=== PATIENT | male | born 1935 | race Caucasian/White ===

== ENCOUNTER → 2017-11-21 | Outpatient (CLI) | payer MEDICARE, BC, OTHER | LOC: M LRY 14:40 | DX: M50.322 Other cervical disc degeneration at C5-C6 level (principal); M85.88 Other specified disorders of bone density and structure, other site; M25.712 Osteophyte, left shoulder; M25.512 Pain in left shoulder | CPT/HCPCS: 72052; G0463 ==

== ENCOUNTER 2018-01-17 09:43 | Emergency (ER) | payer MEDICARE, BC, OTHER ==
[2018-01-17 10:49] LABS: BASO % 0.2 % (0.0-1.0); EOS % 0.1 % (0.0-3.0); HEMATOCRIT 47.2 % (42.0-52.0); HEMOGLOBIN 14.3 g/dl (13.5-17.5); IMMATURE GRANULOCYTE % 0.4 % (0-3.0); LYMPH # 0.8 10^3/uL (1.5-4.5); LYMPH % 9.3 % (24.0-44.0); MEAN CORPUSCULAR HEMOGLOBIN 30.5 pg (27.0-33.0); MEAN CORPUSCULAR HGB CONC 30.3 g/dl (32.0-36.5); MEAN CORPUSCULAR VOLUME 100.6 fl (80.0-96.0); MONO # 0.6 10^3/uL (0.0-0.8); MONO % 7.7 % (0.0-5.0); NEUTROPHILS # 6.8 10^3/uL (1.8-7.7); NEUTROPHILS % 82.3 % (36.0-66.0); PLATELET COUNT, AUTOMATED 128 10^3/uL (150-450); RED BLOOD COUNT 4.69 10^6/uL (4.30-6.10); RED CELL DISTRIBUTION WIDTH 17.1 % (11.5-14.5); WHITE BLOOD COUNT 8.3 10^3/uL (4.0-10.0)
[2018-01-17 11:04] LABS: AMMONIA 32 uMOL/L (<32)
[2018-01-17 11:09] LABS: LACTIC ACID SEPSIS PROTOCOL 1.5 MMOL/L (0.4-2.0)
[2018-01-17 11:09] LABS: ANION GAP 4 MEQ/L (8-16); BLOOD UREA NITROGEN 26 MG/DL (7-18); CALCIUM LEVEL 8.8 MG/DL (8.8-10.2); CARBON DIOXIDE LEVEL 42 MEQ/L (21-32); CHLORIDE LEVEL 99 MEQ/L (98-107); CK-MB VALUE MASS 1.8 NG/ML (<3.6); CPK CREATINE PHOSPHOKINASE 59 U/L (39-308); CREATININE FOR GFR 0.96 MG/DL (0.70-1.30); GLOMERULAR FILTRATION RATE > 60.0 (>35); GLUCOSE, FASTING 99 MG/DL (70-100); MB/CK RELATIVE INDEX 3.05 (< OR =4); POTASSIUM SERUM 4.6 MEQ/L (3.5-5.1); SODIUM LEVEL 145 MEQ/L (136-145); TROPONIN I < 0.02 NG/ML (< 0.10)
[2018-01-17 11:15] LABS: ABG BASE EXCESS 13.1 (-2.0-2.0); ABG HCO3 43.3 MEQ/L (22.0-26.0); ABG O2 SATURATION 88.9 % (95.0-99.0); ABG PARTIAL PRESSURE O2 61.6 mmHg (75.0-100.0); ABG STANDARD HCO3 36.6 MEQ/L (22.0-26.0); ABG TOTAL CO2 45.9 MEQ/L (23.0-31.0); ABG pH (ARTERIAL) 7.322 UNITS (7.350-7.450)
[2018-01-17 11:18] LABS: ABG PARTIAL PRESSURE CO2 85.6 mmHg (35.0-45.0)
[2018-01-17 11:23] LABS: BEDSIDE GLUCOSE 109 MG/DL (83-110)
[2018-01-17] MEDS: NS 500 ML IV (11:23)
[2018-01-17] MEDS ORDERED: FUROSEMIDE 40 MG/4 ML VIAL (J1940) IV (12:00)
[2018-01-17] MEDS ORDERED: LevoFLOXacin IV 500 MG in APPROPRIATE DILUENT 1 EA IV (12:00)
[2018-01-17] MEDS: IPRATROPIUM 0.5MG/ALBUTEROL 2.5MG INH SOL UD 3ML (DUONEB)(J7620) NEB (13:05)
[2018-01-17] MEDS: methylPREDNISolone INJ 125 MG/2 ML VIAL (J2930) IV (13:19)
== END 2018-01-17 14:56 | disposition home or self-care (01) ==
LOC: M ED 09:43
DX: R06.02 Shortness of breath (principal); I44.4 Left anterior fascicular block; J44.9 Chronic obstructive pulmonary disease, unspecified; E78.5 Hyperlipidemia, unspecified; E07.9 Disorder of thyroid, unspecified; R97.20 Elevated prostate specific antigen [PSA]; Z72.0 Tobacco use; Z79.82 Long term (current) use of aspirin; Z79.899 Other long term (current) drug therapy
CPT/HCPCS: J2930

== ENCOUNTER 2018-10-26 16:35 | Inpatient (IN) | payer MEDICARE, BC, OTHER ==
[~2018-10-26] VITALS: Ht 175.3 cm; Wt 75.3 kg
[~2018-10-26 16:35] MED LIST: ACET500T15 PO; ASPI1TAB15 PO; AZIT-12 PO; BENE6POW PO; BUDE0.5S6 INH; BUFF325T PO; IPRA0.00 INH; NICO21PAT TD; OMEP20CA3 PO; PERF20NE2 INH; PRED10TA2 PO; PROAAER10 INH; SPIR1CAP INH; SYMB16INH INH; VITA100066 PO; [UNRECOGNIZED DRUG - CODE] PO
[2018-10-26 17:44] LABS: BASO % 0.1 % (0.0-1.0); HEMATOCRIT 44.8 % (42.0-52.0); HEMOGLOBIN 14.2 g/dl (13.5-17.5); LYMPH # 0.4 10^3/uL (1.5-4.5); LYMPH % 2.2 % (24.0-44.0); MEAN CORPUSCULAR HEMOGLOBIN 29.3 pg (27.0-33.0); MEAN CORPUSCULAR HGB CONC 31.7 g/dl (32.0-36.5); MEAN CORPUSCULAR VOLUME 92.4 fl (80.0-96.0); MONO # 1.9 10^3/uL (0.0-0.8); MONO % 11.4 % (0.0-5.0); NEUTROPHILS # 14.2 10^3/uL (1.8-7.7); NEUTROPHILS % 85.5 % (36.0-66.0); PLATELET COUNT, AUTOMATED 251 10^3/uL (150-450); RED BLOOD COUNT 4.85 10^6/uL (4.30-6.10); WHITE BLOOD COUNT 16.6 10^3/uL (4.0-10.0)
[2018-10-26] MEDS ORDERED: IPRATROPIUM 0.5MG/ALBUTEROL 2.5MG INH SOL UD 3ML (DUONEB)(J7620) NEB ONE (17:45)
[2018-10-26 18:06] LABS: BLOOD UREA NITROGEN 36 MG/DL (7-18); CALCIUM LEVEL 8.9 MG/DL (8.8-10.2); CARBON DIOXIDE LEVEL 33 MEQ/L (21-32); CHLORIDE LEVEL 103 MEQ/L (98-107); CREATININE FOR GFR 1.14 MG/DL (0.70-1.30); GLOMERULAR FILTRATION RATE > 60.0 (>35); GLUCOSE, FASTING 99 MG/DL (70-100); POTASSIUM SERUM 5.5 MEQ/L (3.5-5.1); SODIUM LEVEL 142 MEQ/L (136-145)
--- NOTE | 2018-10-26 18:19 | REP ---
Chest one-view HISTORY: Cough Comparison: 01/23/2018 An increase in interstitial markings is present in the lungs consistent with chronic interstitial change. Patchy density is present in the left lower lobe consistent with an infiltrate. The heart is normal in size. The pulmonary vasculature is normal in appearance. Impression: 1. Chronic interstitial change. 2. Left lower lobe infiltrate. Electronically Signed by Lee Mccord MD 10/26/2018 06:11 P
[2018-10-26] MEDS ORDERED: LevoFLOXacin IV 750 MG in APPROPRIATE DILUENT 1 EA IV ONE (18:30)
[2018-10-26] MEDS ORDERED: ACETAMINOPHEN 500 MG TAB PO ONE (18:30)
[2018-10-26] MEDS ORDERED: NS 2,180 ML in APPROPRIATE DILUENT 1 EA IV ONE (18:30)
[2018-10-26] MEDS ORDERED: methylPREDNISolone INJ 125 MG/2 ML VIAL (J2930) IV ONE (18:45)
[2018-10-26] MEDS: IPRATROPIUM 0.5MG/ALBUTEROL 2.5MG INH SOL UD 3ML (DUONEB)(J7620) NEB SCH ×5 (18:50→22:42)
[2018-10-26 18:53] LABS: VENOUS BASE EXCESS 7.1 (-2.0-2.0); VENOUS HCO3 34.2 MEQ/L (23.0-27.0); VENOUS O2 SATURATION 90.7 % (60.0-80.0); VENOUS PARTIAL PRESSURE CO2 58.2 mmHg (38.0-50.0); VENOUS PARTIAL PRESSURE O2 60.7 mmHg (30.0-50.0); VENOUS PH 7.387 UNITS (7.330-7.430); VENOUS STANDARD HCO3 30.7 MEQ/L
[2018-10-26] MEDS ORDERED: GUAI1200 PO (19:03)
[2018-10-26] MEDS ORDERED: METH125VL IM (19:03)
[2018-10-26] MEDS ORDERED: IPRA2IN INH (19:03)
[2018-10-26] MEDS ORDERED: CEFT1INJ3 IM (19:03)
[2018-10-26 19:12] LABS: INFLUENZA A AMPLIFICATION NEGATIVE (NEGATIVE); INFLUENZA B AMPLIFICATION NEGATIVE (NEGATIVE)
[2018-10-26 19:28] LABS: ALBUMIN 3.1 GM/DL (3.2-5.2); ALT/SGPT 17 U/L (12-78); BILIRUBIN,DIRECT < 0.1 MG/DL (0.0-0.2); BILIRUBIN,TOTAL 0.6 MG/DL (0.2-1.0); CPK CREATINE PHOSPHOKINASE 120 U/L (39-308); NT-PRO BNP 420 PG/ML (<450); THYROID STIMULATING HORMONE 0.187 uIU/ML (0.358-3.740); TOTAL PROTEIN 7.4 GM/DL (6.4-8.2)
[2018-10-26 20:01] LABS: INR 1.15; PROTHROMBIN TIME 14.9 SECONDS (12.1-14.4)
[2018-10-26 20:19] LABS: ABG BASE EXCESS 4.6 (-2.0-2.0); ABG HCO3 29.6 MEQ/L (22.0-26.0); ABG O2 SATURATION 97.9 % (95.0-99.0); ABG PARTIAL PRESSURE CO2 45.6 mmHg (35.0-45.0); ABG PARTIAL PRESSURE O2 100.6 mmHg (75.0-100.0); ABG STANDARD HCO3 28.6 MEQ/L (22.0-26.0)
[2018-10-26] MEDS ORDERED: BISACODYL 5 MG TAB PO PRN (20:45)
[2018-10-26] MEDS ORDERED: ACETAMINOPHEN TAB 650MG DOSE (2X325MG) PO PRN (20:45)
[2018-10-26] MEDS ORDERED: ALBUTEROL SULFATE 2.5 MG/0.5 ML INH NEB SOLN NEB PRN (20:45)
[2018-10-26] MEDS: NS 1,000 ML IV SCH (21:00)
[2018-10-26] MEDS: guaiFENesin ER 600 MG TAB PO SCH (21:52)
[2018-10-26] MEDS: HEPARIN SOD (PORCINE) 5000 UNITS/ML VIAL SC SCH (21:56)
--- NOTE | 2018-10-26 22:05 | HPE ---
DATE OF ADMISSION: 10/26/2018 My attending physician for this patient encounter is Dr. Orlando. HISTORY OF THE PRESENT ILLNESS: The patient is an 83-year-old male with a past medical history of chronic obstructive pulmonary disease, who presents to the hospital today after seeing his primary care physician. The patient has had about a 6-8 week history of increased shortness of breath with cough. The patient has been going back about every 3-4 weeks to primary care physician who had been giving him a one-time dose of intramuscular (IM) methylprednisolone as well as oral prednisone for chronic obstructive pulmonary disease (COPD) exacerbations. The family says this has been going on for some time. Yesterday, he went to his primary care physician, and they were concerned because he was having a fever and was having increased shortness of breath. They gave him a one-time dose of IM methylprednisolone, as well as IM Rocephin. The patient was seen again today and was continuing to have fevers and was not feeling well, so he presented to the emergency room. In the emergency room, the patient received another additional dose of methylprednisolone IV 125 mg. The patient also had a chest x-ray, which showed a left lower lobe infiltrate. The patient did have a fever upon arrival to the emergency room of 100.5 degrees Fahrenheit. The patient continued not to feel well in the emergency room. The patient says that he has been coughing; however, he has not been getting much up. He denies having any chills. He denies any nausea or vomiting. Patient said he has not been eating as much. Patient has only been drinking small amounts of apple juice, which has caused him not to be urinating as much as he had been in the past. The decision was made to admit the patient for treatment of his community-acquired pneumonia. The patient had a previous COPD exacerbation that required hospitalization in February of 2018. PAST MEDICAL HISTORY: COPD. Gastroesophageal reflux disease (GERD). PAST SURGICAL HISTORY: Cataract surgery. Colonoscopy with polypectomy. ALLERGIES: No known drug allergies. HOME MEDICATIONS: - aspirin 81 mg daily - vitamin D 1000 units daily - Mucinex ER 1200 mg twice a day - omeprazole 20 mg daily - Tylenol 500 mg as needed for pain - albuterol inhaler - Atrovent inhaler - Spiriva inhaler - Beneprotein - [facility] FAMILY HISTORY: Father of viral encephalitis at 39, also a history of hypertension on the patient's mom's side. SOCIAL HISTORY: The patient is a former smoker, quit in February of 2018 after a COPD exacerbation hospitalization. Patient denies drinking or drug use. Patient lives with spouse with their [place]. REVIEW OF SYSTEMS: General: Patient denies fevers or chills. HEENT: Patient denies headaches, blurry vision, runny nose, sore throat or earache. Cardiovascular: Patient denies chest pain. Respiratory: Patient endorses shortness of breath and cough as described in history of the present illness. Gastrointestinal (GI): Patient denies abdominal pain, nausea, vomiting, or diarrhea. Genitourinary (): Patient reports decreased urine output over the last day, but denies any pain or difficulty with urination. Neurological: Patient denies any numbness or tingling in his extremities. Extremities: Patient denies swelling in his extremities. Skin: Patient denies any rashes. Lymphatics: Patient denies any lumps or bumps in his neck, axilla or groin. PHYSICAL EXAMINATION: Vital Signs: Temperature 100.5 degrees Fahrenheit, pulse 97, respirations 21, blood pressure 102/58, pulse oximetry 98% on 4 liters via nasal cannula. General: The patient is an alert and oriented male patient who is laying in bed with nasal cannula in the correct position in the patient's nose. The patient was able to carry on a conversation with me and was able to follow commands. Patient appeared to be pursed-lip breathing but did not appear to be in any acute distress at this time. HEENT: Normocephalic, atraumatic with anicteric sclerae. Pupils were round, equal, and reactive to light. Neck: Neck was supple with no lymphadenopathy and no stridor present. Cardiovascular: Regular rate and rhythm with no murmurs auscultated. Respiratory: Poor air movement heard throughout. There was some inspiratory rhonchorous breath sounds in the left lower lung field in the back. The lungs were tympanic to percussion in all lung dupree. Abdomen: Soft, nontender, nondistended with normoactive bowel sounds times four quadrants. Extremities: Radial, posterior tibial and dorsalis pedis pulses were 2/4 bilaterally. There was no pretibial edema present. Neurological: Cranial nerves II-XII grossly intact bilaterally. Upper and lower extremity strength intact bilaterally. Patient reports good sensation of the upper and lower extremities bilaterally. Skin: The skin of the head and neck, back, arms, and lower extremities was examined and did not show any rashes or lesions. LABORATORY: CBC - white blood cells 16.6, hemoglobin 14.2, hematocrit 44.8, platelet count 251. A CMP shows sodium 142, potassium 5.5, chloride 103, bicarbonate 33, BUN 36, creatinine 1.14, glucose 99, calcium 8.9, total bilirubin 0.6, direct bilirubin less than 0.1, AST 29, ALT 17, alkaline phosphatase 87, total protein 7.4, albumin 3.1, lactic acid was 4.8, creatine kinase 120, CK-MB 1.0, troponin 0.10, NT-Pro-B natriuretic peptide 420. PT 14.9, INR 1.15. An arterial blood gas was performed and showed a pH of 7.43, pCO2 45.6, pO2 100.6, bicarbonate 29.6. The patient was tested for influenza A and B, which were both negative. IMAGING: A chest x-ray performed on 10/26/2018 showed chronic interstitial change and a left lower lobe infiltrate. ASSESSMENT AND PLAN: The patient is an 83-year-old male patient who presents to the hospital with increased shortness of breath and coughing, most likely secondary to community-acquired pneumonia, as well as an acute exacerbation of chronic obstructive pulmonary disease. 1. Increased shortness of breath and cough. This is most likely due to community-acquired pneumonia on top of chronic obstructive pulmonary disease. Patient had been receiving doses of steroids off and on over the last few months, prescribed by primary care provider. At this time, the patient was not wheezing; however, he did have decreased air movement throughout his lung dupree. There was rhonchi present in the left lower lung field, which is consistent with pneumonia. Patient will be receiving levofloxacin IV 750 mg daily for his pneumonia. Patient will also receive methylprednisolone IV 40 mg twice a day for COPD exacerbation. Patient will receive DuoNebs every 4 hours with albuterol nebulizers every 2 hours as needed for shortness of breath. Patient will be admitted to the progressive care unit with obstructive sleep apnea (KATHY) protocol for continued pulse oximetry monitoring. The patient is on 3 liters of oxygen at home. We will titrate the patient's oxygen therapy for a pulse oximetry of 88-92%. 2. Community-acquired pneumonia. Patient did have a fever of 100.5 in the emergency department. The patient also has leukocytosis and an infiltrate that is seen on chest x-ray. The patient will be treated with Levaquin as described above. 3. Acute exacerbation of chronic obstructive pulmonary disease. This is most likely secondary to the patient's community-acquired pneumonia. We will continue the treatment as outlined above with nebulizer treatment and IV methylprednisolone. 4. Lactic acidosis. This is most likely secondary to the patient's difficulty breathing. However, due to the patient's pneumonia, it could also be secondary to the patient's pneumonia. We will repeat in 4 hours. The patient is receiving a bolus of IV normal saline of 2.3 liters. 5. Leukocytosis. Leukocytosis may be secondary to the patient's pneumonia as well as the patient's doses of steroids that he has been receiving from his primary care provider. We will continue to monitor this. 6. Gastroesophageal reflux disease. We will continue the patient's omeprazole from home. 7. Deep vein thrombosis (DVT) prophylaxis. The patient will be on heparin 5000 units subcutaneous injection every 8 hours. 8. CODE STATUS: The patient does have a Medical Orders for Life-Sustaining Treatment (MOLST) form, which is signed. However, they do not remember exactly what they put on. In discussion with the patient today, I asked him whether or not he would want us to do cardiopulmonary resuscitation and/or intubation for his breathing if he worsened, patient said he would like us to do whatever we can now and then when family members bring in MOLST form tomorrow morning to go off of what the MOLST form says. I did discuss what noninvasive positive pressure ventilation is versus mechanical ventilation with an endotracheal tube. I described both of those in depth. The patient and family members had understanding. They would like us to do whatever we can tonight if the patient's respiratory status declines. My faculty preceptor for this patient encounter was physically present during the encounter and was fully available. All aspects of the patient interview, examination, medical decision making process, and medical care plan development were reviewed and approved by the faculty preceptor. The faculty preceptor is aware and concurs with the plan as stated in the body of this note and will attest to such by his/her cosignature. I have both independently examined this patient as well as reviewed H and P. I have discussed in detail with the resident the findings and plan of treatment as documented in the residents note. DEEJAY
[2018-10-26 23:20] VITALS: BP 118/73
[2018-10-26 23:30] VITALS: O2SAT 97
[2018-10-27] VITALS (17 sets, daily range): BP systolic 103–128; BP diastolic 65–78; O2SAT 87–97
[2018-10-27] MEDS: IPRATROPIUM 0.5MG/ALBUTEROL 2.5MG INH SOL UD 3ML (DUONEB)(J7620) NEB SCH ×5 (03:15→20:12)
[2018-10-27 05:35] LABS: BASO % 0.1 % (0.0-1.0); LYMPH # 0.4 10^3/uL (1.5-4.5); LYMPH % 2.7 % (24.0-44.0); MEAN CORPUSCULAR HEMOGLOBIN 29.9 pg (27.0-33.0); MEAN CORPUSCULAR HGB CONC 31.9 g/dl (32.0-36.5); MEAN CORPUSCULAR VOLUME 93.5 fl (80.0-96.0); MONO # 0.3 10^3/uL (0.0-0.8); MONO % 2.6 % (0.0-5.0); NEUTROPHILS # 12.2 10^3/uL (1.8-7.7); NEUTROPHILS % 94.1 % (36.0-66.0); PLATELET COUNT, AUTOMATED 205 10^3/uL (150-450); RED BLOOD COUNT 3.85 10^6/uL (4.30-6.10); WHITE BLOOD COUNT 12.9 10^3/uL (4.0-10.0)
[2018-10-27 05:41] LABS: HEMOGLOBIN 11.5 g/dl (13.5-17.5)
[2018-10-27 05:55] LABS: BLOOD UREA NITROGEN 27 MG/DL (7-18); CALCIUM LEVEL 7.8 MG/DL (8.8-10.2); CARBON DIOXIDE LEVEL 30 MEQ/L (21-32); CHLORIDE LEVEL 107 MEQ/L (98-107); CREATININE FOR GFR 1.04 MG/DL (0.70-1.30); GLOMERULAR FILTRATION RATE > 60.0 (>35); GLUCOSE, FASTING 146 MG/DL (70-100); MAGNESIUM LEVEL 2.1 MG/DL (1.8-2.4); POTASSIUM SERUM 4.2 MEQ/L (3.5-5.1); SODIUM LEVEL 144 MEQ/L (136-145)
[2018-10-27] MEDS: methylPREDNISolone INJ 40 MG/1 ML VIAL (J2920) IV SCH ×2 (06:25→19:53)
[2018-10-27] MEDS: HEPARIN SOD (PORCINE) 5000 UNITS/ML VIAL SC SCH ×3 (06:25→21:21)
--- NOTE | 2018-10-27 06:32 | ECGEPIP ---
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
[2018-10-27] MEDS ORDERED: PREVNAR 13 VACCINE SYRINGE (CPT CODE:90670) IM ONE (09:00)
[2018-10-27] MEDS: VITAMIN D 1,000 INTERNATIONAL UNITS TABLET PO SCH (09:59)
[2018-10-27] MEDS: guaiFENesin ER 600 MG TAB PO SCH ×2 (09:59→21:20)
[2018-10-27] MEDS: ASPIRIN 81 MG ENTERIC TAB PO SCH (09:59)
[2018-10-27] MEDS: OMEPRAZOLE 20 MG CAP PO SCH (09:59)
[2018-10-27] MEDS: NS 1,000 ML IV SCH (10:17)
--- NOTE | 2018-10-27 13:15 | IPNPDOC ---
Subjective Date Seen The patient was seen on 10/27/18. Subjective Chief Complaint/HPI Patient seen and examined at the bedside. Reports that his respiratory status is improved compared to when he first came to the ER. Objective Physical Examination General Exam: Positive: Alert, Cooperative, No Acute Distress ENT Exam: Positive: Atraumatic, Mucous membr. moist/pink Neck Exam: Negative: JVD Chest Exam: Positive: Diminished Heart Exam: Positive: Rate Normal, Normal S1, Normal S2 Abdomen Exam: Positive: Soft; Negative: Tenderness Extremity Exam: Negative: Tenderness, Swelling Psych Exam: Positive: Oriented x 3 Assessment /Plan Plan/VTE VTE Prophylaxis Ordered?: Yes Plan COPD Exacerbation 2/2 Community Acquired Pneumonia Chest x-ray notable for left lower lobe infiltrate Respiratory panel negative IV steroids, Levaquin, inhaled therapy, and serial nebulizer therapy ordered Physical therapy ordered for functional optimization We will continue to monitor the patient's respiratory status Lactic Acidosis 2/2 Above GERD Cont PPI DVT Prophylaxis Heparin SC Disposition-pending clinical improvement, PT clearance. VS, I&O, [facility] Vital Signs/I&O Vital Signs Date Time Temp Pulse Resp B/P (MAP) Pulse Ox O2 Delivery O2 Flow Rate FiO2 10/27/18 11:45 97.0 82 20 103/65 (78) 95 3.0 10/27/18 08:19 Nasal Cannula I&O- Last 24 Hours up to 6 AM 10/27/18 06:00 Intake Total 2970 ml Balance 2970 ml Laboratory Data 24H LABS Laboratory Tests 2 10/26/18 17:20: Immature Granulocyte % (Auto) 0.8, White Blood Count 16.6H, Red Blood Count 4.85, Hemoglobin 14.2, Hematocrit 44.8, Mean Corpuscular Volume 92.4, Mean Corpuscular Hemoglobin 29.3, Mean Corpuscular Hemoglobin Concent 31.7L, Red Cell Distribution Width 15.2H, Platelet Count 251, Neutrophils (%) (Auto) 85.5H, Lymphocytes (%) (Auto) 2.2L, Monocytes (%) (Auto) 11.4H, Eosinophils (%) (Auto) 0.0, Basophils (%) (Auto) 0.1, Neutrophils # (Auto) 14.2H, Lymphocytes # (Auto) 0.4L, Monocytes # (Auto) 1.9H, Eosinophils # (Auto) 0.0, Basophils # (Auto) 0.0, Nucleated Red Blood Cells % (auto) 0.0, Blood Gas Bicarbonate Standard 30.7, Ve nous Blood pH 7.387, Venous Blood Partial Pressure CO2 58.2H, Venous Blood Partial Pressure O2 60.7H, Venous Blood Total Carbon Dioxide 36.0H, Venous Blood HCO3 34.2H, Venous Blood Oxygen Saturation 90.7H, Venous Blood Base Excess 7.1H, Anion Gap 6L, Glomerular Filtration Rate > 60.0, Calcium Level 8.9, Aspartate Amino Transf (AST/SGOT) 29, Alanine Aminotransferase (ALT/SGPT) 17, Alkaline Phosphatase 87, Total Bilirubin 0.6, Direct Bilirubin < 0.1, Total Creatine Kinase 120, Creatine Kinase MB 1.0, Creatine Kinase MB Relative Index 1.00, Troponin I 0.10, [id number]-Type Natriuretic Peptide 420, Total Protein 7.4, Albumin 3.1L, Albumin/Globulin Ratio 0.72L, Thyroid Stimulating Hormone (TSH) 0.187L 10/26/18 17:22: Influenza Type A (RT-PCR) NEGATIVE, Influenza Type B (RT-PCR) NEGATIVE 10/26/18 18:42: Blood Gas Bicarbonate Standard 28.6H, Arterial Blood pH 7.430, Arterial Blood Partial Pressure CO2 45.6H, Arterial Blood Partial Pressure O2 100.6H, Arterial Blood Total CO2 31.0, Arterial Blood HCO3 29.6H, Arterial Blood Base Excess 4.6H, Arterial Blood Oxygen Saturation 97.9 10/26/18 19:28: Prothrombin Time 14.9H, Prothromb Time International Ratio 1.15, Lactic Acid Level 4.8*H 10/26/18 23:45: Lactic Acid Followup at 4 Hours 3.6*H 10/27/18 04:59: Immature Granulocyte % (Auto) 0.5, White Blood Count 12.9H, Red Blood Count 3.85L, Hemoglobin 11.5#L, Hematocrit 36.0L, Mean Corpuscular Volume 93.5, Mean Corpuscular Hemoglobin 29.9, Mean Corpuscular Hemoglobin Concent 31.9L, Red Cell Distribution Width 15.5H, Platelet Count 205, Neutrophils (%) (Auto) 94.1H, Lymphocytes (%) (Auto) 2.7L, Monocytes (%) (Auto) 2.6, Eosinophils (%) (Auto) 0.0, Basophils (%) (Auto) 0.1, Neutrophils # (Auto) 12.2H, Lymphocytes # (Auto) 0.4L, Monocytes # (Auto) 0.3, Eosinophils # (Auto) 0.0, Basophils # (Auto) 0.0, Nucleated Red Blood Cells % (auto) 0.0, Anion Gap 7L, Glomerular Filtration Rate > 60.0, Blood Urea Nitrogen 27H, Creatinine 1.04, Sodium Level 144, Potassium Level 4.2#, Chloride Level 107, Carbon Dioxide Level 30, Calcium Level 7.8L, Magnesium Level 2.1 CBC/BMP Laboratory Tests 10/26/18 17:20 Red Blood Count 4.85, Mean Corpuscular Volume 92.4, Mean Corpuscular Hemoglobin 29.3, Mean Corpuscular Hemoglobin Concent 31.7 L, Red Cell Distribution Width 15.2 H, Neutrophils (%) (Auto) 85.5 H, Lymphocytes (%) (Auto) 2.2 L, Monocytes (%) (Auto) 11.4 H, Eosinophils (%) (Auto) 0.0, Basophils (%) (Auto) 0.1, Neutrophils # (Auto) 14.2 H, Lymphocytes # (Auto) 0.4 L, Monocytes # (Auto) 1.9 H, Eosinophils # (Auto) 0.0, Basophils # (Auto) 0.0, Calcium Level 8.9 10/27/18 04:59 Red Blood Count 3.85 L, Mean Corpuscular Volume 93.5, Mean Corpuscular Hemoglobin 29.9, Mean Corpuscular Hemoglobin Concent 31.9 L, Red Cell Distribution Width 15.5 H, Neutrophils (%) (Auto) 94.1 H, Lymphocytes (%) (Auto) 2.7 L, Monocytes (%) (Auto) 2.6, Eosinophils (%) (Auto) 0.0, Basophils (%) (Auto) 0.1, Neutrophils # (Auto) 12.2 H, Lymphocytes # (Auto) 0.4 L, Monocytes # (Auto) 0.3, Eosinophils # (Auto) 0.0, Basophils # (Auto) 0.0, Calcium Level 7.8 L Microbiology Microbiology 10/26/18 Blood Culture, Received Pending 10/26/18 Blood Culture, Received Pending 3/21/19 Respiratory Virus Panel (PCR) ([facility]) - Final, Complete ANGELINA DIAMOND MD Oct 27, 2018 13:15
[2018-10-27] MEDS: LevoFLOXacin IV 750 MG in APPROPRIATE DILUENT 1 EA IV SCH (19:53)
[2018-10-27] MEDS: TIOTROPIUM INHALER/CAPSULE (SPIRIVA) INH SCH (20:14)
[2018-10-28] VITALS (20 sets, daily range): BP systolic 100–132; BP diastolic 64–83; O2SAT 86–98
[2018-10-28] MEDS: IPRATROPIUM 0.5MG/ALBUTEROL 2.5MG INH SOL UD 3ML (DUONEB)(J7620) NEB SCH ×6 (00:16→20:31)
[2018-10-28] MEDS: NS 1,000 ML IV SCH (01:39)
[2018-10-28 05:43] LABS: BASO % 0.2 % (0.0-1.0); HEMATOCRIT 37.6 % (42.0-52.0); HEMOGLOBIN 11.9 g/dl (13.5-17.5); LYMPH # 0.4 10^3/uL (1.5-4.5); LYMPH % 2.4 % (24.0-44.0); MEAN CORPUSCULAR HEMOGLOBIN 30.1 pg (27.0-33.0); MEAN CORPUSCULAR HGB CONC 31.6 g/dl (32.0-36.5); MEAN CORPUSCULAR VOLUME 94.9 fl (80.0-96.0); MONO % 5.4 % (0.0-5.0); NEUTROPHILS # 16.9 10^3/uL (1.8-7.7); NEUTROPHILS % 90.9 % (36.0-66.0); PLATELET COUNT, AUTOMATED 213 10^3/uL (150-450); RED BLOOD COUNT 3.96 10^6/uL (4.30-6.10); WHITE BLOOD COUNT 18.5 10^3/uL (4.0-10.0)
[2018-10-28 05:55] LABS: BLOOD UREA NITROGEN 28 MG/DL (7-18); CALCIUM LEVEL 8.2 MG/DL (8.8-10.2); CARBON DIOXIDE LEVEL 30 MEQ/L (21-32); CHLORIDE LEVEL 109 MEQ/L (98-107); CREATININE FOR GFR 0.88 MG/DL (0.70-1.30); GLOMERULAR FILTRATION RATE > 60.0 (>35); GLUCOSE, FASTING 129 MG/DL (70-100); MAGNESIUM LEVEL 2.3 MG/DL (1.8-2.4); POTASSIUM SERUM 4.5 MEQ/L (3.5-5.1); SODIUM LEVEL 145 MEQ/L (136-145)
[2018-10-28] MEDS: methylPREDNISolone INJ 40 MG/1 ML VIAL (J2920) IV SCH ×2 (06:33→18:19)
[2018-10-28] MEDS: HEPARIN SOD (PORCINE) 5000 UNITS/ML VIAL SC SCH ×3 (06:33→20:49)
[2018-10-28] MEDS ORDERED: SLF 3 ML SYR IV PRN (08:30)
[2018-10-28] MEDS: ASPIRIN 81 MG ENTERIC TAB PO SCH (09:10)
[2018-10-28] MEDS: VITAMIN D 1,000 INTERNATIONAL UNITS TABLET PO SCH (09:10)
[2018-10-28] MEDS: OMEPRAZOLE 20 MG CAP PO SCH (09:11)
[2018-10-28] MEDS: guaiFENesin ER 600 MG TAB PO SCH ×2 (09:11→20:49)
[2018-10-28] MEDS: SLF 3 ML SYR IV SCH ×2 (14:30→22:00)
--- NOTE | 2018-10-28 15:46 | IPNPDOC ---
Subjective Date Seen The patient was seen on 10/28/18. Subjective Chief Complaint/HPI Patient seen and examined at bedside. Reports that his respiratory status continues to improve. He is working with physical therapy to optimize his functional status. Objective Physical Examination General Exam: Positive: Alert, Cooperative, No Acute Distress ENT Exam: Positive: Atraumatic, Mucous membr. moist/pink Neck Exam: Negative: JVD Chest Exam: Positive: Diminished Heart Exam: Positive: Rate Normal, Normal S1, Normal S2 Abdomen Exam: Positive: Soft; Negative: Tenderness Extremity Exam: Negative: Tenderness, Swelling Psych Exam: Positive: Oriented x 3 Assessment /Plan Plan/VTE VTE Prophylaxis Ordered?: Yes Plan COPD Exacerbation 2/2 Community Acquired Pneumonia Chest x-ray notable for left lower lobe infiltrate Respiratory panel negative IV steroids, Levaquin, inhaled therapy, and serial nebulizer therapy ordered Physical therapy ordered for functional optimization We will continue to monitor the patient's respiratory status Lactic Acidosis 2/2 Above GERD Cont PPI DVT Prophylaxis Heparin SC Disposition-pending clinical improvement, PT clearance. VS, I&O, 24H, [facility] Vital Signs/I&O Vital Signs Date Time Temp Pulse Resp B/P (MAP) Pulse Ox O2 Delivery O2 Flow Rate FiO2 10/28/18 14:00 96 Nasal Cannula 3.0 10/28/18 12:00 97.7 92 18 100/64 (76) I&O- Last 24 Hours up to 6 AM 10/28/18 06:00 Intake Total 3070 ml Output Total 500 ml Balance 2570 ml Laboratory Data 24H LABS Laboratory Tests 2 10/28/18 05:15: Immature Granulocyte % (Auto) 1.1, White Blood Count 18.5H, Red Blood Count 3.96L, Hemoglobin 11.9L, Hematocrit 37.6L, Mean Corpuscular Volume 94.9, Mean Corpuscular Hemoglobin 30.1, Mean Corpuscular Hemoglobin Concent 31.6L, Red Cell Distribution Width 15.5H, Platelet Count 213, Neutrophils (%) (Auto) 90.9H, Lymphocytes (%) (Auto) 2.4L, Monocytes (%) (Auto) 5.4H, Eosinophils (%) (Auto) 0.0, Basophils (%) (Auto) 0.2, Neutrophils # (Auto) 16.9H, Lymphocytes # (Auto) 0.4L, Monocytes # (Auto) 1.0H, Eosinophils # (Auto) 0.0, Basophils # (Auto) 0.0, Nucleated Red Blood Cells % (auto) 0.0, Anion Gap 6L, Glomerular Filtration Rate > 60.0, Blood Urea Nitrogen 28H, Creatinine 0.88, Sodium Level 145, Potassium Level 4.5, Chloride Level 109H, Carbon Dioxide Level 30, Calcium Level 8.2L, Magnesium Level 2.3 CBC/BMP Laboratory Tests 10/28/18 05:15 Red Blood Count 3.96 L, Mean Corpuscular Volume 94.9, Mean Corpuscular Hemoglobin 30.1, Mean Corpuscular Hemoglobin Concent 31.6 L, Red Cell Distribution Width 15.5 H, Neutrophils (%) (Auto) 90.9 H, Lymphocytes (%) (Auto) 2.4 L, Monocytes (%) (Auto) 5.4 H, Eosinophils (%) (Auto) 0.0, Basophils (%) (Au to) 0.2, Neutrophils # (Auto) 16.9 H, Lymphocytes # (Auto) 0.4 L, Monocytes # (Auto) 1.0 H, Eosinophils # (Auto) 0.0, Basophils # (Auto) 0.0, Calcium Level 8.2 L Microbiology Microbiology 10/26/18 Blood Culture - Preliminary, Resulted No growth after 24 hours . All specim... 10/26/18 Blood Culture - Preliminary, Resulted No growth after 24 hours . All specim... 10/26/18 Respiratory Virus Panel (PCR) ([facility]) - Final, Complete ANGELINA DIAMOND MD Oct 28, 2018 15:46
[2018-10-28] MEDS: LevoFLOXacin IV 750 MG in APPROPRIATE DILUENT 1 EA IV SCH (18:47)
[2018-10-28] MEDS: TIOTROPIUM INHALER/CAPSULE (SPIRIVA) INH SCH (21:20)
[2018-10-29] VITALS: BP 127/76
[2018-10-29] MEDS: IPRATROPIUM 0.5MG/ALBUTEROL 2.5MG INH SOL UD 3ML (DUONEB)(J7620) NEB SCH ×4 (00:08→11:25)
[2018-10-29 04:00] VITALS: BP 118/76
[2018-10-29] MEDS: HEPARIN SOD (PORCINE) 5000 UNITS/ML VIAL SC SCH (05:57)
[2018-10-29] MEDS: SLF 3 ML SYR IV SCH (05:57)
[2018-10-29 06:18] LABS: BASO # 0.1 10^3/uL (0.0-0.2); BASO % 0.4 % (0.0-1.0); HEMOGLOBIN 12.2 g/dl (13.5-17.5); LYMPH # 0.6 10^3/uL (1.5-4.5); LYMPH % 3.8 % (24.0-44.0); MEAN CORPUSCULAR HEMOGLOBIN 29.6 pg (27.0-33.0); MEAN CORPUSCULAR HGB CONC 32.1 g/dl (32.0-36.5); MEAN CORPUSCULAR VOLUME 92.2 fl (80.0-96.0); MONO # 0.9 10^3/uL (0.0-0.8); MONO % 5.2 % (0.0-5.0); NEUTROPHILS # 14.7 10^3/uL (1.8-7.7); NEUTROPHILS % 87.8 % (36.0-66.0); PLATELET COUNT, AUTOMATED 241 10^3/uL (150-450); RED BLOOD COUNT 4.12 10^6/uL (4.30-6.10); WHITE BLOOD COUNT 16.8 10^3/uL (4.0-10.0)
[2018-10-29] MEDS: methylPREDNISolone INJ 40 MG/1 ML VIAL (J2920) IV SCH (06:24)
[2018-10-29 06:46] LABS: BLOOD UREA NITROGEN 33 MG/DL (7-18); CALCIUM LEVEL 8.3 MG/DL (8.8-10.2); CARBON DIOXIDE LEVEL 30 MEQ/L (21-32); CHLORIDE LEVEL 109 MEQ/L (98-107); CREATININE FOR GFR 1.01 MG/DL (0.70-1.30); GLOMERULAR FILTRATION RATE > 60.0 (>35); GLUCOSE, FASTING 109 MG/DL (70-100); MAGNESIUM LEVEL 2.3 MG/DL (1.8-2.4); POTASSIUM SERUM 4.5 MEQ/L (3.5-5.1); SODIUM LEVEL 145 MEQ/L (136-145)
[2018-10-29 08:00] VITALS: BP 136/78
[2018-10-29 08:02] VITALS: O2SAT 96
[2018-10-29] MEDS ORDERED: predniSONE 20 MG TAB PO SCH (09:00)
[2018-10-29] MEDS: OMEPRAZOLE 20 MG CAP PO SCH (09:25)
[2018-10-29] MEDS: ASPIRIN 81 MG ENTERIC TAB PO SCH (09:25)
[2018-10-29] MEDS: guaiFENesin ER 600 MG TAB PO SCH (09:25)
[2018-10-29] MEDS: VITAMIN D 1,000 INTERNATIONAL UNITS TABLET PO SCH (09:25)
[2018-10-29] MEDS ORDERED: LEVA750T7 PO (11:30)
[2018-10-29] MEDS ORDERED: PRED10TA2 PO (11:30)
[2018-10-29 12:00] VITALS: BP 157/83; O2SAT 96
--- NOTE | 2018-10-29 17:24 | DS.PDOC ---
Discharge Summary General Date of Admission Oct 26, 2018 at 20:27 Date of Discharge 10/29/18 Discharge Summary PROCEDURES PERFORMED DURING STAY: None. ADMITTING/DISCHARGE DIAGNOSES: Community acquired pneumonia COPD exacerbation Lactic acidosis GERD COMPLICATIONS/CHIEF COMPLAINT: Chronic Respiratroy Failure W Hypercapnia Copd Pna. HISTORY OF PRESENT ILLNESS: . 83-year-old male with past medical history of COPD on 3 L of oxygen at baseline presented to the ER with a chief complaint of increased shortness of breath with cough productive of yellowish sputum. The patient states that he has been having increased shortness of breath with dyspnea on exertion. The patient also noted subjective fevers but denied any acute complaints of chest pain, palpitations, abdominal pain, or any nausea/vomiting/diarrhea. In the ER, a chest x-ray revealed left lower lobe infiltrate. The patient was admitted to the hospitalist service for a community acquired pneumonia. During hospitalization, the patient was started on IV antibiotic therapy and IV steroids. The patient was also started on serial nebulizer therapy. The patient's respiratory status significantly improved with the aforementioned therapy. The patient was seen and cleared by physical therapy. I had an extensive discussion with the patient to remain abstinent from tobacco use. At this time, the patient states that he is feeling much better and is eager to return home. He is to complete his antibiotic course and prednisone taper as directed. I've advised the patient to follow-up with his primary care physician within 7 days. Lastly, the patient is advised to return to the ER for any acute emergency. DISCHARGE MEDICATIONS: Please see below. ALLERGIES: Please see below. PHYSICAL EXAMINATION ON DISCHARGE: VITAL SIGNS: Please see below. General Exam: Positive: Alert, Cooperative, No Acute Distress ENT Exam: Positive: Atraumatic, Mucous membr. moist/pink Neck Exam: Negative: JVD Chest Exam: Positive: Diminished Heart Exam: Positive: Rate Normal, Normal S1, Normal S2 Abdomen Exam: Positive: Soft; Negative: Tenderness Extremity Exam: Negative: Tenderness, Swelling Psych Exam: Positive: Oriented x 3 LABORATORY DATA: Please see below. IMAGING: Chest one-view HISTORY: Cough Comparison: 01/23/2018 An increase in interstitial markings is present in the lungs consistent with chronic interstitial change. Patchy density is present in the left lower lobe consistent with an infiltrate. The heart is normal in size. The pulmonary vasculature is normal in appearance. Impression: 1. Chronic interstitial change. 2. Left lower lobe infiltrate. PROGNOSIS: Fair ACTIVITY: As tolerated. DIET: COPD diet DISCHARGE PLAN: DISPOSITION: . Home DISCHARGE INSTRUCTIONS: He is to complete his antibiotic course and prednisone taper as directed. I've advised the patient to follow-up with his primary care physician within 7 days. Lastly, the patient is advised to return to the ER for any acute emergency. DISCHARGE CONDITION: Stable. TIME SPENT ON DISCHARGE: Greater than 30 minutes. Vital Signs/I&Os Vital Signs Date Time Temp Pulse Resp B/P (MAP) Pulse Ox O2 Delivery O2 Flow Rate FiO2 10/29/18 12:00 96 Nasal Cannula 3.0 10/29/18 12:00 97.6 94 22 157/83 (107) I&O- Last 24 Hours up to 6 AM 10/29/18 06:00 Intake Total 760 ml Output Total 925 ml Balance -165 ml Laboratory Data Labs 24H Laboratory Tests 2 10/29/18 05:48: Immature Granulocyte % (Auto) 2.8, White Blood Count 16.8H, Red Blood Count 4.12L, Hemoglobin 12.2L, Hematocrit 38.0L, Mean Corpuscular Volume 92.2, Mean Corpuscular Hemoglobin 29.6, Mean Corpuscular Hemoglobin Concent 32.1, Red Cell Distribution Width 15.9H, Platelet Count 241, Neutrophils (%) (Auto) 87.8H, Lymphocytes (%) (Auto) 3.8L, Monocytes (%) (Auto) 5.2H, Eosinophils (%) (Auto) 0.0, Basophils (%) (Auto) 0.4, Neutrophils # (Auto) 14.7H, Lymphocytes # (Auto) 0.6L, Monocytes # (Auto) 0.9H, Eosinophils # (Auto) 0.0, Basophils # (Auto) 0.1, Nucleated Red Blood Cells % (auto) 0.1H, Anion Gap 6L, Glomerular Filtration Rate > 60.0, Blood Urea Nitrogen 33H, Creatinine 1.01, Sodium Level 145, Potassium Level 4.5, Chloride Level 109H, Carbon Dioxide Level 30, Calcium Level 8.3L, Magnesium Level 2.3 CBC/BMP Laboratory Tests 10/29/18 05:48 Red Blood Count 4.12 L, Mean Corpuscular Volume 92.2, Mean Corpuscular Hemoglobin 29.6, Mean Corpuscular Hemoglobin Concent 32.1, Red Cell Distribution Width 15.9 H, Neutrophils (%) (Auto) 87.8 H, Lymphocytes (%) (Auto) 3.8 L, Monocytes (%) (Auto) 5.2 H, Eosinophils (%) (Auto) 0.0, Basophils (%) (Auto) 0.4, Neutrophils # (Auto) 14.7 H, Lymphocytes # (Auto) 0.6 L, Monocytes # (Auto) 0.9 H, Eosinophils # (Auto) 0.0, Basophils # (Auto) 0.1, Calcium Level 8.3 L Microbiology Microbiology 10/26/18 Blood Culture - Preliminary, Resulted No Growth after 48 hours. All Specime... 10/26/18 Blood Culture - Preliminary, Resulted No Growth after 48 hours. All Specime... 10/26/18 Respiratory Virus Panel (PCR) (GIOVANNI) - Final, Complete Discharge Medications Scheduled (Beneprotein) 6 Gm Pow, 6 GM PO QPM, (Reported) TAKES A MILKSHAKE (Pulmocare 1.5) 1 Liq Liq, 1 LIQ PO DAILY, (Reported) TAKES AT NOONTIME (Guaifenesin ER) 1,200 Mg Tab, 1,200 MG PO Q12H, (Reported) Aspirin (Aspirin) 81 Mg Tab, 81 MG PO DAILY, (Reported) Cholecalciferol (Vitamin D) 1,000 Unit Tab, 1,000 UNIT PO DAILY, (Reported) Levofloxacin Hemihydrate (Levaquin) 750 Mg Tab, 1 TAB PO DAILY Omeprazole (Omeprazole) 20 Mg Cap, 20 MG PO DAILY, (Reported) Prednisone (Prednisone) 10 Mg Tab, 10 MG PO TAPER Take 4 tabs daily x 3 days, then 3 tabs daily x 3 days, then 2 tabs daily x 3 days, then 1 tab daily x 3 days and stop Tiotropium [place] Monohydrate (Spiriva Handihaler) 18 Mcg Cap, 1 INHALATION INH QHS, (Reported) Scheduled PRN Acetaminophen (Acetaminophen) 500 Mg Tab, 500 MG PO for PAIN, (Reported) Albuterol Sulfate (Proair Hfa) 108 Mcg/Act Aer, 2 PUFF INH Q4H PRN for SHORTNESS OF BREATH, (Reported) Ipratropium [place] (Ipratropium [place]) 0.5 Mg/2.5 Ml Soln, 1 VIAL INH Q4H PRN for SHORTNESS OF BREATH, (Reported) Allergies Coded Allergies: No Known Allergies (Unverified , 01/17/18) ANGELINA DIAMOND MD Oct 29, 2018 17:24
== END 2018-10-29 12:53 | disposition home or self-care (01) | DRG 190 ==
LOC: M ED 16:35 → M ED INP 20:27 → M PCU 23:04
PROVIDERS: ADMIT Internal Medicine; ATTEND Internal Medicine
DX: J44.1 Chronic obstructive pulmonary disease with (acute) exacerbation (principal); J18.9 Pneumonia, unspecified organism; E87.2 Acidosis; J96.12 Chronic respiratory failure with hypercapnia; K21.9 Gastro-esophageal reflux disease without esophagitis; Z79.899 Other long term (current) drug therapy; Z79.82 Long term (current) use of aspirin; Z87.891 Personal history of nicotine dependence; D72.829 Elevated white blood cell count, unspecified

== ENCOUNTER 2018-11-02 09:02 | Inpatient (IN) | payer MEDICARE, BC, OTHER ==
[~2018-11-02] VITALS: Ht 175.3 cm; Wt 69.3 kg
[~2018-11-02 09:02] MED LIST changes: +CEFT1INJ3 IM; +GUAI1200 PO; +IPRA2IN INH; +LEVA750T7 PO; +METH125VL IM
[2018-11-02] MEDS ORDERED: IPRATROPIUM 0.5MG/ALBUTEROL 2.5MG INH SOL UD 3ML (DUONEB)(J7620) NEB PRN ×2 (09:30→12:45)
[2018-11-02] MEDS ORDERED: ALBUTEROL SULFATE 2.5 MG/0.5 ML INH NEB SOLN As Ordered ONE (09:40)
[2018-11-02] MEDS ORDERED: ALBUTEROL SULFATE 2.5 MG/0.5 ML INH NEB SOLN INH ONE (09:45)
[2018-11-02] MEDS ORDERED: IPRATROPIUM 0.5MG/ALBUTEROL 2.5MG INH SOL UD 3ML (DUONEB)(J7620) NEB ONE (09:45)
[2018-11-02 09:48] LABS: BASO # 0.1 10^3/uL (0.0-0.2); BASO % 0.4 % (0.0-1.0); HEMATOCRIT 47.8 % (42.0-52.0); HEMOGLOBIN 15.2 g/dl (13.5-17.5); LYMPH # 0.3 10^3/uL (1.5-4.5); LYMPH % 1.7 % (24.0-44.0); MEAN CORPUSCULAR HGB CONC 31.8 g/dl (32.0-36.5); MEAN CORPUSCULAR VOLUME 94.3 fl (80.0-96.0); MONO # 0.4 10^3/uL (0.0-0.8); MONO % 2.2 % (0.0-5.0); NEUTROPHILS # 16.5 10^3/uL (1.8-7.7); NEUTROPHILS % 93.1 % (36.0-66.0); PLATELET COUNT, AUTOMATED 216 10^3/uL (150-450); RED BLOOD COUNT 5.07 10^6/uL (4.30-6.10); WHITE BLOOD COUNT 17.8 10^3/uL (4.0-10.0)
--- NOTE | 2018-11-02 09:56 | REP ---
PORTABLE CHEST X-RAY: Sitting AP projection. Two views. HISTORY: Dyspnea and cough. COMPARISON STUDY: October 26 1018. FINDINGS: EKG monitoring electrodes overlie the chest along with oxygen delivery tubing. There is interstitial infiltrate again noted in the left base essentially unchanged from October 26, 2018. Interstitial fibrosis pattern is noted diffusely also unchanged. Heart is not enlarged. No new infiltrate is seen. IMPRESSION: Persistent interstitial infiltrate left base. COPD and diffuse interstitial fibrosis pattern. Electronically Signed by Rupert Ruiz MD 11/02/2018 12:04 P
[2018-11-02 09:57] LABS: ABG BASE EXCESS 8.5 (-2.0-2.0); ABG HCO3 34.4 MEQ/L (22.0-26.0); ABG O2 SATURATION 96.9 % (95.0-99.0); ABG PARTIAL PRESSURE CO2 52.2 mmHg (35.0-45.0); ABG PARTIAL PRESSURE O2 87.9 mmHg (75.0-100.0); ABG STANDARD HCO3 32.2 MEQ/L (22.0-26.0); ABG pH (ARTERIAL) 7.437 UNITS (7.350-7.450)
[2018-11-02] MEDS ORDERED: methylPREDNISolone INJ 125 MG/2 ML VIAL (J2930) IV ONE (10:00)
[2018-11-02 10:01] LABS: ALT/SGPT 27 U/L (12-78); BILIRUBIN,DIRECT 0.2 MG/DL (0.0-0.2); BILIRUBIN,TOTAL 0.6 MG/DL (0.2-1.0); BLOOD UREA NITROGEN 29 MG/DL (7-18); CALCIUM LEVEL 8.8 MG/DL (8.8-10.2); CARBON DIOXIDE LEVEL 36 MEQ/L (21-32); CHLORIDE LEVEL 101 MEQ/L (98-107); CPK CREATINE PHOSPHOKINASE 48 U/L (39-308); CREATININE FOR GFR 0.98 MG/DL (0.70-1.30); GLOMERULAR FILTRATION RATE > 60.0 (>35); GLUCOSE, FASTING 94 MG/DL (70-100); MB/CK RELATIVE INDEX 3.96 (< OR =4); NT-PRO BNP 957 PG/ML (<450); POTASSIUM SERUM 4.6 MEQ/L (3.5-5.1); SODIUM LEVEL 143 MEQ/L (136-145); THYROID STIMULATING HORMONE 0.167 uIU/ML (0.358-3.740); THYROXINE (T4) 7.1 UG/DL (4.5-12.0); TOTAL PROTEIN 6.7 GM/DL (6.4-8.2)
--- NOTE | 2018-11-02 10:27 | ECGEPIP ---
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
[2018-11-02] MEDS ORDERED: PIPERACILLIN/TAZOBACTAM SOD 3.375 GM in D5W MINI-BAG PLUS 50 ML IV ONE (10:45)
[2018-11-02] MEDS ORDERED: NS 1,000 ML IV ONE (11:00)
[2018-11-02 11:15] LABS: INR 1.05; PARTIAL THROMBOPLASTIN TIME 24.1 SECONDS (25.4-37.6); PROTHROMBIN TIME 13.8 SECONDS (12.1-14.4)
[2018-11-02] MEDS ORDERED: NS 2,180 ML in APPROPRIATE DILUENT 1 EA IV ONE (11:15)
[2018-11-02 11:19] LABS: C REACTIVE PROTEIN QUANTITATIV 2.28 MG/DL (0.00-0.30)
[2018-11-02 11:59] LABS: APPEARANCE, URINE CLEAR (CLEAR); BACTERIA, URINE AUTO NEGATIVE (NEGATIVE); BILIRUBIN, URINE AUTO NEGATIVE (NEGATIVE); BLOOD, URINE BLOOD NEGATIVE (NEGATIVE); COLOR, URINE YELLOW (YELLOW); GLUCOSE, URINE (UA) AUTO NEGATIVE (NEGATIVE); KETONE, URINE AUTO NEGATIVE (NEGATIVE); LEUKOCYTE ESTERASE, URINE AUTO NEGATIVE (NEGATIVE); MUCUS, URINE SMALL (NEGATIVE); NITRITE, URINE AUTO NEGATIVE (NEGATIVE); PROTEIN, URINE AUTO NEGATIVE (NEGATIVE); RBC, URINE AUTO 4 /HPF (0-3); SPECIFIC GRAVITY URINE AUTO 1.023 (1.002-1.035); SQUAMOUS EPITHELIAL CELL UR AU 0 /HPF (0-6); UROBILINOGEN, URINE AUTO 0.2 mg/dL (0.0-2.0); WBC, URINE AUTO 3 /HPF (0-3)
[2018-11-02 12:00] LABS: INFLUENZA A AMPLIFICATION POSITIVE (NEGATIVE); INFLUENZA B AMPLIFICATION NEGATIVE (NEGATIVE)
[2018-11-02] MEDS: SYMBICORT 80/4.5MCG INHALER 6GM INH SCH ×2 (12:15→20:19)
[2018-11-02] MEDS ORDERED: FUROSEMIDE 20 MG/2 ML VIAL (J1940) IV ONE (12:15)
[2018-11-02] MEDS ORDERED: ONDANSETRON 4MG/2ML VIAL (J2405) IV PRN (12:15)
[2018-11-02 14:10] VITALS: BP 93/50
[2018-11-02] MEDS: FUROSEMIDE 20 MG/2 ML VIAL (J1940) IV SCH ×2 (14:40→21:15)
[2018-11-02] MEDS: ENOXAPARIN 30 MG/0.3 ML SYR (J1650) SC SCH (14:40)
[2018-11-02 15:00] VITALS: BP 93/54
[2018-11-02] MEDS: SENOKOT S TAB PO SCH ×2 (15:07→21:00)
[2018-11-02] MEDS: ALBUTEROL SULFATE 2.5 MG/0.5 ML INH NEB SOLN NEB SCH ×3 (15:45→23:13)
[2018-11-02] MEDS: OMEPRAZOLE 20 MG CAP PO SCH (15:55)
[2018-11-02] MEDS: ASPIRIN 81 MG ENTERIC TAB PO SCH (15:56)
[2018-11-02 16:00] VITALS: BP 109/60
[2018-11-02] MEDS: methylPREDNISolone INJ 40 MG/1 ML VIAL (J2920) IV SCH (17:35)
[2018-11-02] MEDS: PIPERACILLIN/TAZOBACTAM SOD 3.375 GM in D5W MINI-BAG PLUS 50 ML IV SCH ×2 (17:36→23:18)
--- NOTE | 2018-11-02 19:35 | ECHO ---
DATE OF PROCEDURE: 11/02/2018 REFERRING PHYSICIAN: Dr. Rose Marie Kidd INDICATION: Congestive heart failure. Height 175 cm Weight 73 kg. DIMENSIONS: IVS 1.1 LV 4.5 LVPW: 1.2 LA 3.3 Aorta 3.3 IVC 2.1 Mitral E wave velocity 64, A-wave 109 FINDINGS: The study is of fair technical quality. The patient is in sinus rhythm. Left ventricle is normal size and normal systolic function. I estimate EF around 60-65%. Mild LVH is noted. Right ventricle appears normal but was poorly seen. Both atria are appear at least mildly enlarged. Aortic valve is heavily calcified and there is by 2-D imaging severe restriction of mobility with a likely severe aortic stenosis. There are mild degenerative abnormalities of mitral valve with mitral annular calcifications. Tricuspid and pulmonic valves appear normal. Pericardial fat pad is noted. Inferior vena cava is dilated but partially collapses with respiration indicative of likely mildly elevated central venous pressure. Aortic root is normal. Aortic arch and abdominal aorta were not seen. Doppler interrogation of aortic valve reveals mild insufficiency and likely severe stenosis. Documented peak gradient was 56 and mean gradient 34 mmHg which led to calculated aortic valve area 1.3 cm2 but on a subsequent screen there was a peak gradient documented to 76 mmHg. There was not trace mean gradient but I do believe that he has severity of stenosis is indeed more than what is calculated. There is trace mitral insufficiency. Mild tricuspid insufficiency. Calculated pulmonary artery pressure is in 40s corresponding to moderate pulmonary hypertension. Pulmonic valve is functionally competent. Mitral inflow pattern reveals grade 1 diastolic dysfunction. CONCLUSIONS: 1. Study is of fair technical quality. 2. Normal LV size with mild LVH, preserved LV systolic function and grade 1 diastolic dysfunction. 3. Severe aortic stenosis (mean gradient 34, likely not documented through severity of the stenosis). Mild aortic insufficiency. 4. Trace mitral and mild tricuspid insufficiency. 5. Elevated central venous pressure and moderate pulmonary hypertension. COMMENT: SBE prophylaxis is not recommended. Even though the documentation was somewhat limited, I believe that the patient has truly severe aortic stenosis and should be considered for aortic valve replacement either surgical or percutaneous if felt to be a candidate.
[2018-11-02 20:00] VITALS: BP 99/61
[2018-11-02] MEDS: TIOTROPIUM INHALER/CAPSULE (SPIRIVA) INH SCH (21:00)
[2018-11-02] MEDS: OSELTAMIVIR PHOSPHATE 75 MG CAP (TAMIFLU) PO SCH (21:16)
--- NOTE | 2018-11-02 21:36 | HPEPDOC ---
General Date of Admission Nov 02, 2018 at 12:12 Attending Physician: MATIAS STARKS MD Chief Complaint The patient is a 83-year-old male admitted with a reason for visit of Chf Copd With Exacerbation. Source: Patient, Family, Old records Exam Limitations: No limitations Associated Symptoms: Shortness of breath, Weakness History of Present Illness 83 year old male with PMH of COPD on home oxygen , hyperlipidemia, GERD recently admitted to our hospital from October 26 to October 29, 2018 for left lower lobe pneumonia and COPD exacerbation discharged home with Levofloxacin and steroid taper presented to the ED today with increased SOB, leg swelling, weakness for 1 day. As per after his discharge he was doing good for 2 days then yesterday she noted that his legs were swollen and he was very short of breath . he could not even get out of bed without getting winded he was very tired, could not eat much so was brought to the ED today. In the ED CXR showed persistence of the left lower lobe infiltrate, elevated wbc to 16K, he was afebrile with Bp of 100s/ 50s which as per son is his usual blood pressure. He was felt to have COPD exacerbation and pneumonia. Later in the ED his blood pressure dropped to 75/55 so it was felt that he may be septic so was started on fluid bolus as per sepsis protocol and was given zosyn and the pateint was presented for admission. On my evaluation patient was clearly fluid overloaded with bipedal edema and facial swelling, positive JVD, with bibasal crackles . I felt patient was in CHF ex acerbation. Nasal swab was also done which came back positive for influenza A. So the patient was admitted for Influenza A, CHF exacerbation and COPD exacerbation and possibly resolving pneumonia. Home Medications Scheduled (Beneprotein) 6 Gm Pow, 6 GM PO QPM, (Reported) TAKES A [place] (Pulmocare 1.5) 1 Liq Liq, 1 LIQ PO DAILY, (Reported) TAKES AT NOONTIME (Guaifenesin ER) 1,200 Mg Tab, 1,200 MG PO Q12H, (Reported) Aspirin (Aspirin) 81 Mg Tab, 81 MG PO DAILY, (Reported) Cholecalciferol (Vitamin D) 1,000 Unit Tab, 1,000 UNIT PO DAILY, (Reported) Levofloxacin Hemihydrate (Levaquin) 750 Mg Tab, 1 TAB PO DAILY Omeprazole (Omeprazole) 20 Mg Cap, 20 MG PO DAILY, (Reported) Prednisone (Prednisone) 10 Mg Tab, 10 MG PO TAPER Take 4 tabs daily x 3 days, then 3 tabs daily x 3 days, then 2 tabs daily x 3 days, then 1 tab daily x 3 days and stop Tiotropium [place] Monohydrate (Spiriva Handihaler) 18 Mcg Cap, 1 CAP INH QHS, (Reported) Scheduled PRN Acetaminophen (Acetaminophen) 500 Mg Tab, 500 MG PO Q6H PRN for PAIN, (Reported) Albuterol Sulfate (Proair Hfa) 108 Mcg/Act Aer, 2 PUFF INH Q4H PRN for SHORTNESS OF BREATH, (Reported) Ipratropium [place] (Ipratropium [place]) 0.5 Mg/2.5 Ml Soln, 1 VIAL INH Q4H PRN for SHORTNESS OF BREATH, (Reported) Allergies Coded Allergies: No Known Allergies (Unverified , 01/17/18) Past Medical History Medical History COPD with chronic hypoxic respiratory failure GERD VIT D deficiency Hyperlipidemia Surgical History Transanal excision of rectal villous adenoma in 2006. Social History * Smoker: former Smoker, quit less than 1 year Alcohol: Denies Drugs: denies Review of Systems Constitutional: Reports: Weakness, Fatigue Pulmonary: Reports: Dyspnea Cardiovascular: Reports: Orthopnea, Edema Physical Examination General Exam: Positive: Alert, Cooperative, Mild Distress Eye Exam: Positive: Other Eye Symptoms (periorbital swelling) ENT Exam: Positive: Atraumatic, Mucous membr. moist/pink Neck Exam: Positive: Supple, JVD Chest Exam: Positive: Rales, Wheezing Heart Exam: Positive: Tachycardic, Normal S1, Normal S2, Murmurs (systolic murmur) Telemetry: Positive: Sinus, Tachycardia Abdomen Exam: Positive: Normal bowel sounds, Soft Extremity Exam: Positive: Edema Vital Signs Vital Signs Date Time Temp Pulse Resp B/P (MAP) Pulse Ox O2 Delivery O2 Flow Rate FiO2 11/02/18 20:00 2.0 11/02/18 20:00 98.0 80 27 99/61 (74) 94 11/02/18 13:45 Room Air Laboratory Data Labs 24H Laboratory Tests 2 11/02/18 09:19: Prothrombin Time 13.8, Prothromb Time International Ratio 1.05, Activated Partial Thromboplast Time 24.1L 11/02/18 09:25: Immature Granulocyte % (Auto) 2.6, White Blood Count 17.8H, Red Blood Count 5.07, Hemoglobin 15.2, Hematocrit 47.8, Mean Corpuscular Volume 94.3, Mean Corpuscular Hemoglobin 30.0, Mean Corpuscular Hemoglobin Concent 31.8L, Red Cell Distribution Width 16.1H, Platelet Count 216, Neutrophils (%) (Auto) 93.1H, Lymphocytes (%) (Auto) 1.7L, Monocytes (%) (Auto) 2.2, Eosinophils (%) (Auto) 0.0, Basophils (%) (Auto) 0.4, Neutrophils # (Auto) 16.5H, Lymphocytes # (Auto) 0.3L, Monocytes # (Auto) 0.4, Eosinophils # (Auto) 0.0, Basophils # (Auto) 0.1, Nucleated Red Blood Cells % (auto) 0.1H, Anion Gap 6L, Glomerular Filtration Rate > 60.0, Lactic Acid Level 2.0, Calcium Level 8.8, Aspartate Amino Transf (AST/SGOT) 27, Alanine Aminotransferase (ALT/SGPT) 27, Alkaline Phosphatase 70, Total Bilirubin 0.6, Direct Bilirubin 0.2, Total Creatine Kinase 48, Creatine Kinase MB 2.0, Creatine Kinase MB Relative Index 3.96, Troponin I 0.50H, C- Reactive Protein, Quantitative 2.28H, HW-Ean-N-Type Natriuretic Peptide 957H, Total Protein 6.7, Albumin 3.0L, Albumin/Globulin Ratio 0.81L, Thyroid Stimulating Hormone (TSH) 0.167L, Thyroxine (T4) 7.1 11/02/18 09:44: Blood Gas Bicarbonate Standard 32.2H, Arterial Blood pH 7.437, Arterial Blood Partial Pressure CO2 52.2H, Arterial Blood Partial Pressure O2 87.9, Arterial Blood Total CO2 36.0H, Arterial Blood HCO3 34.4H, Arterial Blood Base Excess 8.5H, Arterial Blood Oxygen Saturation 96.9 11/02/18 11:15: Influenza Type A (RT-PCR) POSITIVEH, Influenza Type B (RT-PCR) NEGATIVE 11/02/18 11:36: Urine Appearance CLEAR, Urine Color YELLOW, Urine pH 5.0, Urine Specific [place] 1.023, Urine Protein NEGATIVE, Urine Glucose (UA) NEGATIVE, Urine Ketones NEGATIVE, Urine Urobilinogen 0.2, Urine Bilirubin NEGATIVE, Urine Leukocyte Esterase NEGATIVE, Urine Blood NEGATIVE, Urine Nitrite NEGATIVE, Urine WBC (Auto) 3, Urine RBC (Auto) 4H, Urine Hyaline Casts (Auto) 0, Urine Bacteria (Auto) NEGATIVE, Urine Squamous Epithelial Cells 0, Urine Mucus (Auto) SMALL, Urine Sperm (Auto) CBC/BMP Laboratory Tests 11/02/18 09:25 Red Blood Count 5.07, Mean Corpuscular Volume 94.3, Mean Corpuscular Hemoglobin 30.0, Mean Corpuscular Hemoglobin Concent 31.8 L, Red Cell Distribution Width 16.1 H, Neutrophils (%) (Auto) 93.1 H, Lymphocytes (%) (Auto) 1.7 L, Monocytes (%) (Auto) 2.2, Eosinophils (%) (Auto) 0.0, Basophils (%) (Auto) 0.4, Neutrophils # (Auto) 16.5 H, Lymphocytes # (Auto) 0.3 L, Monocytes # (Auto) 0.4, Eosinophils # (Auto) 0.0, Basophils # (Auto) 0.1 Microbiology Microbiology 11/02/18 Blood Culture, Received Pending 11/02/18 Blood Culture, Received Pending 11/02/18 Urine Culture, Received Pending Assessment/Plan 83 year old male with PMH of COPD on home oxygen , hyperlipidemia, GERD recently admitted to our hospital from October 26 to October 29, 2018 for left lower lobe pneumonia and COPD exacerbation discharged home with Levofloxacin and steroid taper presented to the ED today with increased SOB, leg swelling, weakness for 1 day. As per after his discharge he was doing good for 2 days then yesterday she noted that his legs were swollen and he was very short of breath . he could not even get out of bed without getting winded he was very tired, could not eat much so was brought to the ED today. In the ED CXR showed persistence of the left lower lobe infiltrate, elevated wbc to 16K, he was afebrile with Bp of 100s/ 50s which as per son is his usual blood pressure. He was felt to have COPD exacerbation and pneumonia. Later in the ED his blood pressure dropped to 75/55 so it was felt that he may be septic so was started on fluid bolus as per sepsis protocol and was given zosyn and the pateint was presented for admission. On my evaluation patient was clearly fluid overloaded with bipedal edema and facial swelling, positive JVD, with bibasal crackles . I felt patient was in CHF exa cerbation. Nasal swab was also done which came back positive for influenza A. So the patient was admitted for Influenza A, CHF exacerbation and COPD exacerbation and possibly resolving pneumonia. Influenza A will start on tamiflu. He was negative for Flu on October 26. isolation precautions continue oxygen supplementation Acute CHF Echo shows severe Aortic stenosis,grade 1 diastolic dysfunction and moderate pulmonary hypertension. There is preserved LV systolic function. patient has acute diastolic and right sided heart failure. will continue with lasix iv Has low blood pressures possibly due to severe aortic stenosis will consult cardiology tomorrow. COPD with chronic hypoxic respiratory failure with acute hypercarbia may have mild exacerbation of COPD due to influenza and fluid overload from CHF. will continue with nebs and steroids. oxygen supplementation. Pulmonary hypertension with Corpulmonale continue lasix. Resolving pneumonia vs new pneumonia depending on pateint's clinical condition if BPs stabilize will deescalate antibiotics from zosyn to levofloxacin. will continue Zosyn today. Sepsis I do not think patient has sepsis. he has chronic low normal BP which is possibly due to his severe aortic stenosis. his lactate is not elevated. his mentation is at baseline. Though he was tachycardic i think that was due to CHF. GERD continue omeprazole DVT prophylaxis has been ordered. Plan / VTE VTE Prophylaxis Ordered?: Yes MATIAS STARKS MD Nov 02, 2018 21:36
[2018-11-03] VITALS (13 sets, daily range): BP systolic 91–123; BP diastolic 52–72
[2018-11-03] MEDS: methylPREDNISolone INJ 40 MG/1 ML VIAL (J2920) IV SCH ×2 (01:46→09:10)
[2018-11-03] MEDS: ALBUTEROL SULFATE 2.5 MG/0.5 ML INH NEB SOLN NEB SCH ×6 (03:13→23:41)
[2018-11-03 04:51] LABS: BASO % 0.2 % (0.0-1.0); HEMATOCRIT 41.6 % (42.0-52.0); HEMOGLOBIN 13.3 g/dl (13.5-17.5); LYMPH % 1.4 % (24.0-44.0); MEAN CORPUSCULAR HEMOGLOBIN 29.8 pg (27.0-33.0); MEAN CORPUSCULAR VOLUME 93.3 fl (80.0-96.0); MONO # 0.4 10^3/uL (0.0-0.8); MONO % 2.7 % (0.0-5.0); NEUTROPHILS # 14.7 10^3/uL (1.8-7.7); NEUTROPHILS % 94.3 % (36.0-66.0); PLATELET COUNT, AUTOMATED 172 10^3/uL (150-450); RED BLOOD COUNT 4.46 10^6/uL (4.30-6.10); WHITE BLOOD COUNT 15.6 10^3/uL (4.0-10.0)
[2018-11-03 05:12] LABS: LYMPH # 0.2 10^3/uL (1.5-4.5)
[2018-11-03 05:19] LABS: BLOOD UREA NITROGEN 29 MG/DL (7-18); CALCIUM LEVEL 7.8 MG/DL (8.8-10.2); CARBON DIOXIDE LEVEL 39 MEQ/L (21-32); CHLORIDE LEVEL 99 MEQ/L (98-107); CREATININE FOR GFR 1.03 MG/DL (0.70-1.30); GLOMERULAR FILTRATION RATE > 60.0 (>35); GLUCOSE, FASTING 136 MG/DL (70-100); POTASSIUM SERUM 3.8 MEQ/L (3.5-5.1); SODIUM LEVEL 144 MEQ/L (136-145)
[2018-11-03] MEDS: PIPERACILLIN/TAZOBACTAM SOD 3.375 GM in D5W MINI-BAG PLUS 50 ML IV SCH (05:23)
[2018-11-03] MEDS: SYMBICORT 80/4.5MCG INHALER 6GM INH SCH ×2 (08:27→20:13)
[2018-11-03] MEDS ORDERED: FUROSEMIDE 20 MG/2 ML VIAL (J1940) IV SCH (09:00)
[2018-11-03] MEDS ORDERED: LevoFLOXacin 750 MG TABLET PO SCH (09:00)
[2018-11-03] MEDS ORDERED: predniSONE 10 MG TAB PO SCH (09:00)
[2018-11-03] MEDS: ENOXAPARIN 30 MG/0.3 ML SYR (J1650) SC SCH (09:09)
[2018-11-03] MEDS: SENOKOT S TAB PO SCH ×2 (09:10→21:49)
[2018-11-03] MEDS: ASPIRIN 81 MG ENTERIC TAB PO SCH (09:10)
[2018-11-03] MEDS: OMEPRAZOLE 20 MG CAP PO SCH (09:10)
[2018-11-03] MEDS: OSELTAMIVIR PHOSPHATE 75 MG CAP (TAMIFLU) PO SCH ×2 (09:10→21:49)
[2018-11-03 09:58] LABS: ABG BASE EXCESS 14.1 (-2.0-2.0); ABG HCO3 41.8 MEQ/L (22.0-26.0); ABG O2 SATURATION 96.6 % (95.0-99.0); ABG PARTIAL PRESSURE O2 85.2 mmHg (75.0-100.0); ABG TOTAL CO2 43.8 MEQ/L (23.0-31.0); ABG pH (ARTERIAL) 7.422 UNITS (7.350-7.450)
[2018-11-03 10:00] LABS: ABG PARTIAL PRESSURE CO2 65.6 mmHg (35.0-45.0)
[2018-11-03] MEDS ORDERED: LevoFLOXacin 500 MG TABLET PO ONE (12:00)
[2018-11-03] MEDS: TIOTROPIUM INHALER/CAPSULE (SPIRIVA) INH SCH (20:13)
--- NOTE | 2018-11-03 21:39 | IPNPDOC ---
Subjective Date Seen The patient was seen on 11/03/18. Subjective Chief Complaint/HPI Patient feels much better today. His SOB has improved. He is back to his home oxygen requirement. His does say he does not always use the oxygen. Also she says that he has been smoking pipe after last discharge from hospital. Objective Physical Examination General Exam: Positive: Alert, Cooperative, Mild Distress Eye Exam: Positive: Other Eye Symptoms (periorbital swelling) ENT Exam: Positive: Atraumatic, Mucous membr. moist/pink Neck Exam: Positive: Supple, JVD Chest Exam: Positive: Rales, Wheezing Heart Exam: Positive: Tachycardic, Normal S1, Normal S2, Murmurs (systolic murm ur) Telemetry: Positive: Sinus, Tachycardia Abdomen Exam: Positive: Normal bowel sounds, Soft Extremity Exam: Positive: Edema Assessment /Plan Assessment 83 year old male with PMH of COPD on home oxygen , hyperlipidemia, GERD recently admitted to our hospital from October 26 to October 29, 2018 for left lower lobe pneumonia and COPD exacerbation discharged home with Levofloxacin and steroid taper presented to the ED today with increased SOB, leg swelling, weakness for 1 day. As per after his discharge he was doing good for 2 days then yesterday she noted that his legs were swollen and he was very short of breath . he could not even get out of bed without getting winded he was very tired, could not eat much so was brought to the ED today. In the ED CXR showed persistence of the left lower lobe infiltrate, elevated wbc to 16K, he was afebrile with Bp of 100s/ 50s which as per son is his usual blood pressure. He was felt to have COPD exacerbation and pneumonia. Later in the ED his blood pressure dropped to 75/55 so it was felt that he may be septic so was started on fluid bolus as per sepsis protocol and was given zosyn and the patient was presented for admission. On my evaluation patient was clearly fluid overloaded with bipedal edema and facial swelling, positive JVD, with bibasal crackles . I felt patient was in CHF exacerbation. Nasal swab was also done which came back positive for influenza A. So the patient was admitted for Influenza A, CHF exacerbation and COPD exacer bation and possibly resolving pneumonia. Influenza A On tamiflu. He was negative for Flu on October 26. isolation precautions continue oxygen supplementation Acute CHF Echo shows severe Aortic stenosis, grade 1 diastolic dysfunction and moderate pulmonary hypertension. There is preserved LV systolic function. patient has acute diastolic and right sided heart failure. will continue with lasix iv Has low blood pressures possibly due to severe aortic stenosis follow cardiology recommendation COPD with chronic hypoxic respiratory failure with acute hypercarbia may have mild exacerbation of COPD due to influenza and fluid overload from CHF. will continue with nebs and steroids. oxygen supplementation. Worseneningof hypercarbia today which is due to metabolic alkalosis due to aggressive diuresis will hold lasix today in view of rising C02 Pulmonary hypertension with Corpulmonale continue lasix. Resolving pneumonia continue to finish the course of Levofloxacin. Sepsis I do not think patient has sepsis. he has chronic low normal BP which is possibly due to his severe aortic stenosis. his lactate is not elevated. his mentation is at baseline. Though he was tachycardic i think that was due to CHF. GERD continue omeprazole DVT prophylaxis has been ordered. Plan/VTE VTE Prophylaxis Ordered?: Yes VS, I&O, 24H, Fishbone Vital Signs/I&O Vital Signs Date Time Temp Pulse Resp B/P (MAP) Pulse Ox O2 Delivery O2 Flow Rate FiO2 11/03/18 20:00 99.1 103 20 108/64 (79) 91 2.0 11/02/18 13:45 Room Air I&O- Last 24 Hours up to 6 AM 11/03/18 06:00 Intake Total 850 ml Output Total 3275 ml Balance -2425 ml Laboratory Data 24H LABS Laboratory Tests 2 11/03/18 04:40: Immature Granulocyte % (Auto) 1.4, White Blood Count 15.6H, Red Blood Count 4.46, Hemoglobin 13.3L, Hematocrit 41.6L, Mean Corpuscular Volume 93.3, Mean Corpuscular Hemoglobin 29.8, Mean Corpuscular Hemoglobin Concent 32.0, Red Cell Distribution Width 16.0H, Platelet Count 172, Neutrophils (%) (Auto) 94.3H, Lymphocytes (%) (Auto) 1.4L, Monocytes (%) (Auto) 2.7, Eosinophils (%) (Auto) 0.0, Basophils (%) (Auto) 0.2, Neutrophils # (Auto) 14.7H, Lymphocytes # (Auto) 0.2L, Monocytes # (Auto) 0.4, Eosinophils # (Auto) 0.0, Basophils # (Auto) 0.0, Nucleated Red Blood Cells % (auto) 0.0, Anion Gap 6L, Glomerular Filtration Rate > 60.0, Blood Urea Nitrogen 29H, Creatinine 1.03, Sodium Level 144, Potassium Level 3.8, Chloride Level 99, Carbon Dioxide Level 39H, Calcium Level 7.8L 11/03/18 09:48: Blood Gas Bicarbonate Standard 38.0H, Arterial Blood pH 7.422, Arterial Blood Partial Pressure CO2 65.6*H, Arterial Blood Partial Pressure O2 85.2, Arterial Blood Total CO2 43.8H, Arterial Blood HCO3 41.8H, Arterial Blood Base Excess 14.1H, Arterial Blood Oxygen Saturation 96.6 CBC/BMP Laboratory Tests 11/03/18 04:40 Red Blood Count 4.46, Mean Corpuscular Volume 93.3, Mean Corpuscular Hemoglobin 29.8, Mean Corpuscular Hemoglobin Concent 32.0, Red Cell Distribution Width 16.0 H, Neutrophils (%) (Auto) 94.3 H, Lymphocytes (%) (Auto) 1.4 L, Monocytes (%) (Auto) 2.7, Eosinophils (%) (Auto) 0.0, Basophils (%) (Auto) 0.2, Neutrophils # (Auto) 14.7 H, Lymphocytes # (Auto) 0.2 L, Monocytes # (Auto) 0.4, Eosinophils # (Auto) 0.0, Basophils # (Auto) 0.0, Calcium Level 7.8 L Microbiology Microbiology 11/02/18 Blood Culture - Preliminary, Resulted No growth after 24 hours . All specim... 11/02/18 Blood Culture - Preliminary, Resulted No growth after 24 hours . All specim... 11/02/18 Urine Culture, Received Pending MATIAS STARKS MD Nov 03, 2018 21:39
[2018-11-04] MEDS: ALBUTEROL SULFATE 2.5 MG/0.5 ML INH NEB SOLN NEB SCH ×6 (03:36→23:34)
[2018-11-04 04:00] VITALS: BP 124/63
[2018-11-04 05:38] LABS: ABG BASE EXCESS 14.2 (-2.0-2.0); ABG HCO3 40.7 MEQ/L (22.0-26.0); ABG O2 SATURATION 93.9 % (95.0-99.0); ABG PARTIAL PRESSURE CO2 58.1 mmHg (35.0-45.0); ABG PARTIAL PRESSURE O2 67.2 mmHg (75.0-100.0); ABG TOTAL CO2 42.5 MEQ/L (23.0-31.0); ABG pH (ARTERIAL) 7.463 UNITS (7.350-7.450)
[2018-11-04 05:50] LABS: BASO % 0.2 % (0.0-1.0); HEMATOCRIT 41.2 % (42.0-52.0); HEMOGLOBIN 13.2 g/dl (13.5-17.5); LYMPH # 0.6 10^3/uL (1.5-4.5); LYMPH % 3.6 % (24.0-44.0); MEAN CORPUSCULAR HEMOGLOBIN 30.1 pg (27.0-33.0); MEAN CORPUSCULAR VOLUME 93.8 fl (80.0-96.0); MONO # 0.8 10^3/uL (0.0-0.8); MONO % 4.7 % (0.0-5.0); NEUTROPHILS # 15.5 10^3/uL (1.8-7.7); NEUTROPHILS % 90.4 % (36.0-66.0); PLATELET COUNT, AUTOMATED 163 10^3/uL (150-450); RED BLOOD COUNT 4.39 10^6/uL (4.30-6.10); WHITE BLOOD COUNT 17.1 10^3/uL (4.0-10.0)
[2018-11-04 06:16] LABS: BLOOD UREA NITROGEN 31 MG/DL (7-18); CALCIUM LEVEL 8.2 MG/DL (8.8-10.2); CARBON DIOXIDE LEVEL 41 MEQ/L (21-32); CHLORIDE LEVEL 99 MEQ/L (98-107); CREATININE FOR GFR 0.92 MG/DL (0.70-1.30); GLOMERULAR FILTRATION RATE > 60.0 (>35); GLUCOSE, FASTING 95 MG/DL (70-100); POTASSIUM SERUM 3.6 MEQ/L (3.5-5.1); SODIUM LEVEL 143 MEQ/L (136-145)
[2018-11-04 08:00] VITALS: BP 139/66
[2018-11-04] MEDS: SYMBICORT 80/4.5MCG INHALER 6GM INH SCH ×2 (09:00→19:56)
[2018-11-04] MEDS: predniSONE 10 MG TAB PO SCH (10:21)
[2018-11-04] MEDS: ENOXAPARIN 30 MG/0.3 ML SYR (J1650) SC SCH (10:21)
[2018-11-04] MEDS: OMEPRAZOLE 20 MG CAP PO SCH (10:21)
[2018-11-04] MEDS: SENOKOT S TAB PO SCH ×2 (10:21→20:51)
[2018-11-04] MEDS: OSELTAMIVIR PHOSPHATE 75 MG CAP (TAMIFLU) PO SCH ×2 (10:21→20:51)
[2018-11-04] MEDS: ASPIRIN 81 MG ENTERIC TAB PO SCH (10:22)
[2018-11-04] MEDS: FUROSEMIDE 20 MG/2 ML VIAL (J1940) IV SCH (10:23)
[2018-11-04 12:00] VITALS: BP 93/63
[2018-11-04 12:50] VITALS: BP_SYST 102; BP_SYST 82; BP_SYST 92; BP_DIAS 50; BP_DIAS 56; BP_DIAS 60
--- NOTE | 2018-11-04 14:30 | IPNPDOC ---
Subjective Date Seen The patient was seen on 11/04/18. Subjective Chief Complaint/HPI No complaints this morning walking around well with his oxygen , using 2 liters of oxygen . Denies any sob , denies any chest pain. Appetite improving. Son concerned about that he does not use his nebulizers always and does not use his oxygen during ambulation. His is concerned as he has been smoking his pipe at home. No fever or chills, has some cough. wants to go home. Objective Physical Examination General Exam: Positive: Alert, Cooperative, Mild Distress Eye Exam: Positive: Other Eye Symptoms (periorbital swelling) ENT Exam: Positive: Atraumatic, Mucous membr. moist/pink Neck Exam: Positive: Supple, JVD Chest Exam: Positive: Rales, Wheezing Heart Exam: Positive: Tachycardic, Normal S1, Normal S2, Murmurs (systolic murmur) Telemetry: Positive: Sinus, Tachycardia Abdomen Exam: Positive: Normal bowel sounds, Soft Extremity Exam: Positive: Edema Assessment /Plan Assessment 83 year old male with PMH of COPD on home oxygen , hyperlipidemia, GERD recently admitted to our hospital from October 26 to October 29, 2018 for left lower lobe pneumonia and COPD exacerbation discharged home with Levofloxacin and steroid taper presented to the ED today with increased SOB, leg swelling, weakness for 1 day. As per after his discharge he was doing good for 2 days then yesterday she noted that his legs were swollen and he was very short of breath . he could not even get out of bed without getting winded he was very tired, could not eat much so was brought to the ED today. In the ED CXR showed persistence of the left lower lobe infiltrate, elevated wbc to 16K, he was afebrile with Bp of 100s/ 50s which as per son is his usual blood pressure. He was felt to have COPD exacerbation and pneumonia. Later in the ED his blood pressure dropped to 75/55 so it was felt that he may be septic so was started on fluid bolus as per sepsis protocol and was given zosyn and the patient was presented for admission. On my evaluation patient was clearly fluid overloaded with bipedal edema and facial swelling, positive JVD, with bibasal crackles . I felt patient was in CHF exacerbation. Nasal swab was also done which came back positive for influenza A. So the patient was admitted for Influenza A, CHF exacerbation and COPD exacerbation and possibly resolving pneumonia. Influenza A On tamiflu. He was negative for Flu on October 26. isolation precautions continue oxygen supplementation Acute CHF Echo shows severe Aortic stenosis, grade 1 diastolic dysfunction and moderate pu lmonary hypertension. There is preserved LV systolic function. patient has acute diastolic and right sided heart failure. will continue with lasix iv Has low blood pressures possibly due to severe aortic stenosis follow cardiology recommendation COPD with chronic hypoxic respiratory failure with acute hypercarbia may have mild exacerbation of COPD due to influenza and fluid overload from CHF. will continue with nebs and steroids. oxygen supplementation. Worseneningof hypercarbia today which is due to metabolic alkalosis due to aggressive diuresis will hold lasix today in view of rising C02 Pulmonary hypertension with Corpulmonale continue lasix. Resolving pneumonia continue to finish the course of Levofloxacin. Sepsis I do not think patient has sepsis. he has chronic low normal BP which is possibly due to his severe aortic stenosis. his lactate is not elevated. his mentation is at baseline. Though he was tachycardic i think that was due to CHF. GERD continue omeprazole DVT prophylaxis has been ordered. Plan/VTE VTE Prophylaxis Ordered?: Yes VS, I&O, 24H, Fishbone Vital Signs/I&O Vital Signs Date Time Temp Pulse Resp B/P (MAP) Pulse Ox O2 Delivery O2 Flow Rate FiO2 11/04/18 12:50 82 102/60 (74) 72 92/56 (68) 76 82/50 (61) 11/04/18 12:00 2.0 11/04/18 12:00 98.2 19 89 11/02/18 13:45 Room Air I&O- Last 24 Hours up to 6 AM 11/04/18 06:00 Intake Total 910 ml Output Total 1585 ml Balance -675 ml Laboratory Data 24H LABS Laboratory Tests 2 11/04/18 05:29: Immature Granulocyte % (Auto) 1.1, White Blood Count 17.1H, Red Blood Count 4.39, Hemoglobin 13.2L, Hematocrit 41.2L, Mean Corpuscular Volume 93.8, Mean Corpuscular Hemoglobin 30.1, Mean Corpuscular Hemoglobin Concent 32.0, Red Cell Distribution Width 15.8H, Platelet Count 163, Neutrophils (%) (Auto) 90.4H, Lymphocytes (%) (Auto) 3.6L, Monocytes (%) (Auto) 4.7, Eosinophils (%) (Auto) 0.0, Basophils (%) (Auto) 0.2, Neutrophils # (Auto) 15.5H, Lymphocytes # (Auto) 0.6L, Monocytes # (Auto) 0.8, Eosinophils # (Auto) 0.0, Basophils # (Auto) 0.0, Nucleated Red Blood Cells % (auto) 0.0, Anion Gap 3L, Glomerular Filtration Rate > 60.0, Blood Urea Nitrogen 31H, Creatinine 0.92, Sodium Level 143, Potassium Level 3.6, Chloride Level 99, Carbon Dioxide Level 41H, Calcium Level 8.2L 11/04/18 05:30: Blood Gas Bicarbonate Standard 38.0H, Arterial Blood pH 7.463H, Arterial Blood Partial Pressure CO2 58.1H, Arterial Blood Partial Pressure O2 67.2L, Arterial Blood Total CO2 42.5H, Arterial Blood HCO3 40.7H, Arterial Blood Base Excess 14.2H, Arterial Blood Oxygen Saturation 93.9L CBC/BMP Laboratory Tests 11/04/18 05:29 Red Blood Count 4.39, Mean Corpuscular Volume 93.8, Mean Corpuscular Hemoglobin 30.1, Mean Corpuscular Hemoglobin Concent 32.0, Red Cell Distribution Width 15.8 H, Neutrophils (%) (Auto) 90.4 H, Lymphocytes (%) (Auto) 3.6 L, Monocytes (%) (Auto) 4.7, Eosinophils (%) (Auto) 0.0, Basophils (%) (Auto) 0.2, Neutrophils # (Auto) 15.5 H, Lymphocytes # (Auto) 0.6 L, Monocytes # (Auto) 0.8, Eosinophils # (Auto) 0.0, Basophils # (Auto) 0.0, Calcium Level 8.2 L Microbiology Microbiology 11/02/18 Blood Culture - Preliminary, Resulted No Growth after 48 hours. All Specime... 11/02/18 Blood Culture - Preliminary, Resulted No Growth after 48 hours. All Specime... 11/02/18 Urine Culture - Final, Complete Staphylococcus Epidermidis MATIAS STARKS MD Nov 04, 2018 14:30
[2018-11-04 15:30] VITALS: BP 109/71
--- NOTE | 2018-11-04 15:32 | CR ---
DATE OF CONSULTATION: 11/03/2018 CARDIOLOGY CONSULTATION REFERRING PROVIDER: Dr. Rose Marie Kidd. REASON FOR THE CONSULT: Aortic stenosis, heart failure. PRIMARY PHYSICIAN: Dr. Jian Quiroz. HISTORY OF THE PRESENT ILLNESS: An 83-year-old male, recently treated here from 10/26/2018 to 10/29/2018 with left lower lobe pneumonia and exacerbation of chronic obstructive pulmonary disease (COPD) with levofloxacin and prednisone. He came back to the hospital on 11/02/2018 with increased shortness of breath, bilateral pedal edema. Upon arrival in the emergency room (ER), he was found to have persistent left lower lobe pneumonia and a CBC revealed a WBC of 15,000 and at one point in the ER, he was hypotensive with a blood pressure reported to be 74/55. He was started on intravenous (IV) fluids and IV antibiotics. He also ruled in for flu secondary to influenza A. He had an echocardiogram done on 11/02/2018, and it revealed severe aortic stenosis with a peak gradient of 56 mmHg and a mean gradient of 34 mmHg, left ventricular ejection fraction (LVEF) was reported to be 60-65%. Cardiology consult was called. When I saw Mr. Justo Soriano on the floor in the progressive care unit (PCU) last evening, he was laying supine in bed, in no acute distress at rest, and his daughter was at bedside. He denies any chest pain and his pedal edema has improved significantly. He continues to have shortness of breath but thinks he is feeling slightly better. There is no report of fever or chills. There is no report of bleeding. He was first managed in the intensive care unit (ICU) and then transferred earlier today to PCU for further management. He has no nausea, vomiting, diarrhea, melena or hematemesis. There is no focal manifestation. There is no headaches or dizziness. He has a past medical history positive for COPD, and years ago, he was seen by Dr. Esteban Ramos. He denies any history of hypertension, atrial fibrillation, transient ischemic attack (TIA)/cerebrovascular accident (CVA), prior history of congestive heart failure. He denies diabetes mellitus, kidney disease. In the past, he was on a statin, but he stated it was given to him because of his smoking, his cholesterol was never that high. He has been on chronic oxygen therapy, but according to the family, he uses only as needed. MEDICATIONS AT HOME: Aspirin 81 mg by mouth daily, cholecalciferol 1000 units by mouth daily, levofloxacin 750 mg by mouth daily, omeprazole 20 mg by mouth daily, prednisone 10 mg by mouth daily, Spiriva HandiHaler 18 mcg one capsule nightly. CURRENT MEDICATIONS: Proventil nebulizer 2.5 mg every 4 hours via inhalation and also as needed, aspirin 81 mg by mouth daily, Symbicort two puffs via inhalation twice a day, docusate sodium one tablet by mouth twice a day, Lovenox 30 mg subcu daily, omeprazole 20 mg by mouth daily, ondansetron 4 mg IV every 6 hours as needed for nausea or vomiting, Tamiflu 75 mg by mouth twice a day, and Spiriva one inhalation nightly. 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 FAMILY HISTORY: Noncontributory. SOCIAL HISTORY: Patient has been a heavy smoker, but quit about a year ago. He denies any ethyl alcohol (ETOH) abuse or illicit drugs. ALLERGIES: No known drug allergies. On physical examination, the patient is alert and oriented, in no acute distress at rest and his vital signs, when I saw him yesterday in the evening, revealed a blood pressure of 99/57 with respirations of 22, and a pulse of 76, temperature 99.0 degrees Fahrenheit, and oxygen saturation was 95% on two liters nasal cannula. He has a negative fluid balance of 2.1 liters for 11/02/2018. Examination of the head: Atraumatic. Neck is supple with extended jugular. The lungs reveal minimal end-expiratory wheezing but no crackles heard. The heart examination revealed irregular heart sounds without gallops. The point of maximum impulse (PMI) is not displaced. There is no rub. There is a systolic murmur over the precordium, grade 2/6, particularly heard at the base of the heart/aortic valve area with some minimal radiation to the neck. Abdomen is soft and nontender. Bowel sounds are active. Extremities reveal no pedal edema. Neurologic examination grossly is negative for focal deficit. LABORATORY: CBC on 11/03/2018 revealed a WBC of 15.6, hemoglobin 13.3, hematocrit 41.6, and platelets 172,000. BMP revealed a sodium of 144, potassium 3.8, chloride 99, CO2 39, BUN 29, creatinine 1.03, GFR more than 60, fasting glucose 136, and calcium 7.8. Serum lactic acid was 2.0. Liver enzymes on 11/02/2018 revealed a direct bilirubin of 0.2, total bilirubin 0.6, AST 27, ALT 27, alkaline phosphatase 70, total protein 6.7, and albumin 3.0. Thyroid function test revealed a TSH of 0.167. Serum pro-BNP on 11/02/2018 was 957. Serum troponin was 0.50. Influenza A and B: Positive for influenza A, negative for influenza B. PT on admission was 13.8 with an INR of 1.05 and APTT of 24.1. EKG on 11/02/2018 revealed sinus tachycardia, mild at 108 beats per minute, IVCD, left axis deviation/left anterior hemiblock, isolated PACs, poor R wave progression. There is nonspecific ST-T abnormality. Echocardiogram on 11/02/2018 revealed a normal LVEF estimated at 60-65% with mild concentric left ventricular hypertrophy (LVH), biatrial enlargement, and findings that may be related to severe aortic stenosis. Chest x-ray on admission, 11/02/2018, revealed persistent interstitial infiltrate at the left base, diffuse interstitial fibrosis and COPD. IMPRESSION: 1. Aortic stenosis, severe with a normal global left ventricular function. This was discussed with the patient as well as his family, and the patient might be a candidate for aortic valve replacement either surgically or . He will need further evaluation prior to that, a cardiac catheterization and this can be done as an outpatient. He also will need to be evaluated by his printmaker. There is no history of atrial fibrillation, syncope/near syncope, and he denies any chest pain, but he most likely would benefit from replacement of that valve if his cardiac catheterization finds him to have severe aortic stenosis. I do not believe we should wait too long in his case in view of his underlying lung disease, which most likely will deteriorate. This was discussed with the patient as well as his daughter and will monitor him along with you. Case also was discussed with hospitalist electronic commerce specialist. His most recent episode of congestive heart failure, which is secondary to left ventricular diastolic dysfunction, is probably related to fluid overload. 2. Chronic obstructive pulmonary disease, severe, and patient has underlying pulmonary fibrosis. He has been on oxygen supplement continuously, but has been using it only as needed. He was told that he needs to use it continuously and has manifested understanding. 3. Pneumonia, left lower lobe. Influenza A: Being addressed. Years ago, he was evaluated by pulmonology, Dr. Ramos, and he will need to make a followup to follow with him and for further evaluation. 4. Gastroesophageal reflux disease (GERD), on medication with omeprazole. 5. Abnormal EKG. coronary artery disease in view of his long history of smoking, but he has a normal LVEF. This will be assessed when he goes for the cardiac catheterization to reassess his aortic stenosis. There will be no need to do a stress test in this case. It was a pleasure to participate in the care of Mr. Justo Soriano for his underlying cardiac condition. I will continue to monitor him along with you while in the hospital. Please do not hesitate to call if any questions or any changes in his condition.
[2018-11-04] MEDS: TIOTROPIUM INHALER/CAPSULE (SPIRIVA) INH SCH (21:00)
[2018-11-04 22:00] VITALS: BP 126/70
[2018-11-05] MEDS: ALBUTEROL SULFATE 2.5 MG/0.5 ML INH NEB SOLN NEB SCH ×3 (03:56→11:22)
[2018-11-05 05:51] LABS: BASO % 0.2 % (0.0-1.0); HEMATOCRIT 41.8 % (42.0-52.0); HEMOGLOBIN 13.2 g/dl (13.5-17.5); LYMPH # 0.8 10^3/uL (1.5-4.5); LYMPH % 6.9 % (24.0-44.0); MEAN CORPUSCULAR HEMOGLOBIN 29.9 pg (27.0-33.0); MEAN CORPUSCULAR HGB CONC 31.6 g/dl (32.0-36.5); MEAN CORPUSCULAR VOLUME 94.8 fl (80.0-96.0); MONO # 0.6 10^3/uL (0.0-0.8); MONO % 4.9 % (0.0-5.0); PLATELET COUNT, AUTOMATED 173 10^3/uL (150-450); RED BLOOD COUNT 4.41 10^6/uL (4.30-6.10); WHITE BLOOD COUNT 11.5 10^3/uL (4.0-10.0)
[2018-11-05 06:00] VITALS: BP 132/68
[2018-11-05 06:23] LABS: BLOOD UREA NITROGEN 33 MG/DL (7-18); CALCIUM LEVEL 8.3 MG/DL (8.8-10.2); CARBON DIOXIDE LEVEL 41 MEQ/L (21-32); CHLORIDE LEVEL 102 MEQ/L (98-107); CREATININE FOR GFR 1.01 MG/DL (0.70-1.30); GLOMERULAR FILTRATION RATE > 60.0 (>35); GLUCOSE, FASTING 82 MG/DL (70-100); POTASSIUM SERUM 4.4 MEQ/L (3.5-5.1); SODIUM LEVEL 145 MEQ/L (136-145)
[2018-11-05] MEDS: SYMBICORT 80/4.5MCG INHALER 6GM INH SCH (07:33)
[2018-11-05] MEDS: SENOKOT S TAB PO SCH (08:14)
[2018-11-05] MEDS: FUROSEMIDE 20 MG/2 ML VIAL (J1940) IV SCH (08:14)
[2018-11-05] MEDS: predniSONE 10 MG TAB PO SCH (08:14)
[2018-11-05] MEDS: ENOXAPARIN 30 MG/0.3 ML SYR (J1650) SC SCH (08:14)
[2018-11-05] MEDS: ASPIRIN 81 MG ENTERIC TAB PO SCH (08:14)
[2018-11-05] MEDS: OSELTAMIVIR PHOSPHATE 75 MG CAP (TAMIFLU) PO SCH (08:14)
[2018-11-05] MEDS: OMEPRAZOLE 20 MG CAP PO SCH (08:14)
[2018-11-05] MEDS ORDERED: LASI20TA3 PO (11:46)
[2018-11-05] MEDS ORDERED: SYMB80INH INH (11:46)
[2018-11-05] MEDS ORDERED: PRED10TA2 PO (11:46)
[2018-11-05] MEDS ORDERED: ALB2.5NEB NEB (11:46)
[2018-11-05] MEDS ORDERED: OSEL75CA2 PO (11:46)
--- NOTE | 2018-11-05 23:34 | DS.PDOC ---
Discharge Summary General Date of Admission Nov 02, 2018 at 12:12 Date of Discharge 11/05/18 Attending Physician: MATIAS STARKS MD Specialist/Consultants Involve: SYD MIDDLETON MD Discharge Summary PROCEDURES PERFORMED DURING STAY: Echo: Normal LV size with mild LVH, preserved LV systolic function and grade 1 diastolic dysfunction. Severe aortic stenosis (mean gradient 34, likely not documented through severity of the stenosis). Mild aortic insufficiency. Trace mitral and mild tricuspid insufficiency. Elevated central venous pressure and moderate pulmonary hypertension. DISCHARGE DIAGNOSES: Influenza A Acute diastolic CHF and acute right heart failure Severe Aortic stenosis COPD exacerbation Acute on chronic respiratory failure with hypoxia and hypercarbia Pulmonary hypertension with Corpulmonale Resolving pneumonia GERD COMPLICATIONS/CHIEF COMPLAINT: Chf Copd With Exacerbation. HISTORY OF PRESENT ILLNESS: See History and physical HOSPITAL COURSE: 83 year old male with PMH of COPD on home oxygen , hyperlipidemia, GERD recently admitted to our hospital from October 26 to October 29, 2018 for left lower lobe pneumonia and COPD exacerbation discharged home with Levofloxacin and steroid taper presented to the ED today with increased SOB, leg swelling, weakness for 1 day. As per after his discharge he was doing good for 2 days then yesterday she noted that his legs were swollen and he was very short of breath . he could not even get out of bed without getting winded he was very tired, could not eat much so was brought to the ED today. In the ED CXR showed persistence of the left lower lobe infiltrate, elevated wbc to 16K, he was afebrile with Bp of 100s/ 50s which as per son is his usual blood pressure. He was felt to have COPD exacerbation and pneumonia. Later in the ED his blood pressure dropped to 75/55 so it was felt that he may be septic so was started on fluid bolus as per sepsis protocol and was given zosyn and the patient was presented for admission. On my evaluation patient was clearly fluid overloaded with bipedal edema and facial swelling, positive JVD, with bibasal crackles . I felt patient was in CHF exacerbation. Nasal swab was also done which came back positive for influenza A. So the patient was admitted for Infl uenza A, CHF exacerbation and COPD exacerbation and possibly resolving pneumonia. Influenza A On tamiflu. He was negative for Flu on October 26. isolation precautions continue oxygen supplementation Acute CHF Echo shows severe Aortic stenosis, grade 1 diastolic dysfunction and moderate pulmonary hypertension. There is preserved LV systolic function. patient has acute diastolic and right sided heart failure. will continue with lasix Has low blood pressures possibly due to severe aortic stenosis follow cardiology recommendation COPD with acute on chronic hypoxic respiratory failure with acute hypercarbia may have mild exacerbation of COPD due to influenza and fluid overload from CHF. will continue with nebs and steroids. oxygen supplementation. Pulmonary hypertension with Corpulmonale continue lasix. Resolving pneumonia continue to finish the course of Levofloxacin. GERD continue omeprazole DISCHARGE MEDICATIONS: Please see below. ALLERGIES: Please see below. PHYSICAL EXAMINATION ON DISCHARGE: VITAL SIGNS: Please see below. General Exam: Positive: Alert, Cooperative, Mild Distress Eye Exam: Positive: Other Eye Symptoms (periorbital swelling) ENT Exam: Positive: Atraumatic, Mucous membr. moist/pink Neck Exam: Positive: Supple, JVD Chest Exam: Positive: Rales, Wheezing and bibasal crackles. Heart Exam: Positive: Tachycardic, Normal S1, Normal S2, Murmurs (systolic murmur) Telemetry: Positive: Sinus, Tachycardia Abdomen Exam: Positive: Normal bowel sounds, Soft Extremity Exam: Positive: Edema LABORATORY DATA: Please see below. ACTIVITY: [As tolerated]. DIET: regular , fluid restriction 1.5 liters. DISPOSITION: Home, Self-Care. DISCHARGE INSTRUCTIONS: Follow up PMD in [address] Middleton in 2 to 3 weeks Needs referral to pulmonary DISCHARGE CONDITION: [Stable]. TIME SPENT ON DISCHARGE: Greater than 30 minutes. Vital Signs/I&Os Vital Signs Date Time Temp Pulse Resp B/P (MAP) Pulse Ox O2 Delivery O2 Flow Rate FiO2 11/05/18 09:00 2.0 11/05/18 06:00 98.9 81 18 132/68 (89) 95 11/02/18 13:45 Room Air I&O- Last 24 Hours up to 6 AM 11/05/18 06:00 Intake Total 780 ml Output Total 900 ml Balance -120 ml Laboratory Data Labs 24H Laboratory Tests 2 11/05/18 05:34: Immature Granulocyte % (Auto) 1.0, White Blood Count 11.5H, Red Blood Count 4.41, Hemoglobin 13.2L, Hematocrit 41.8L, Mean Corpuscular Volume 94.8, Mean Corpuscular Hemoglobin 29.9, Mean Corpuscular Hemoglobin Concent 31.6L, Red Cell Distribution Width 15.9H, Platelet Count 173, Neutrophils (%) (Auto) 87.0H, Lymphocytes (%) (Auto) 6.9L, Monocytes (%) (Auto) 4.9, Eosinophils (%) (Auto) 0.0, Basophils (%) (Auto) 0.2, Neutrophils # (Auto) 10.0H, Lymphocytes # (Auto) 0.8L, Monocytes # (Auto) 0.6, Eosinophils # (Auto) 0.0, Basophils # (Auto) 0.0, Nucleated Red Blood Cells % (auto) 0.0, Anion Gap 2L, Glomerular Filtration Rate > 60.0, Blood Urea Nitrogen 33H, Creatinine 1.01, Sodium Level 145, Potassium Level 4.4#, Chloride Level 102, Carbon Dioxide Level 41H, Calcium Level 8.3L CBC/BMP Laboratory Tests 11/05/18 05:34 Red Blood Count 4.41, Mean Corpuscular Volume 94.8, Mean Corpuscular Hemoglobin 29.9, Mean Corpuscular Hemoglobin Concent 31.6 L, Red Cell Distribution Width 15.9 H, Neutrophils (%) (Auto) 87.0 H, Lymphocytes (%) (Auto) 6.9 L, Monocytes (%) (Auto) 4.9, Eosinophils (%) (Auto) 0.0, Basophils (%) (Auto) 0.2, Neutrophils # (Auto) 10.0 H, Lymphocytes # (Auto) 0.8 L, Monocytes # (Auto) 0.6, Eosinophils # (Auto) 0.0, Basophils # (Auto) 0.0, Calcium Level 8.3 L Microbiology Microbiology 11/02/18 Blood Culture - Preliminary, Resulted No Growth after 72 hours. All specime... 11/02/18 Blood Culture - Preliminary, Resulted No Growth after 72 hours. All specime... 11/02/18 Urine Culture - Final, Complete Staphylococcus Epidermidis Discharge Medications Scheduled (Beneprotein) 6 Gm Pow, 6 GM PO QPM, (Reported) TAKES A MILKSHAKE (Pulmocare 1.5) 1 Liq Liq, 1 LIQ PO DAILY, (Reported) TAKES AT NOONTIME (Guaifenesin ER) 1,200 Mg Tab, 1,200 MG PO Q12H, (Reported) Albuterol Sulfate (Albuterol Sulfate) 2.5 Mg/0.5 Ml Neb, 2.5 MG NEB QID Aspirin (Aspirin) 81 Mg Tab, 81 MG PO DAILY, (Reported) Budesonide/Formoterol (Symbicort 80-4.5 Mcg/Act) 60 Puff/Inhaler Aers, 2 PUFF INH BID Cholecalciferol (Vitamin D) 1,000 Unit Tab, 1,000 UNIT PO DAILY, (Reported) Furosemide (Lasix) 20 Mg Tab, 1 TAB PO DAILY Omeprazole (Omeprazole) 20 Mg Cap, 20 MG PO DAILY, (Reported) Oseltamivir Phosphate (Oseltamivir Phosphate) 75 Mg Cap, 75 MG PO BID Prednisone (Prednisone) 10 Mg Tab, 10 MG PO TAPER 2 tabs daily x 3 days, then 1 tab daily x 3 days and stop Tiotropium [place] Monohydrate (Spiriva Handihaler) 18 Mcg Cap, 1 CAP INH QHS, (Reported) Scheduled PRN Acetaminophen (Acetaminophen) 500 Mg Tab, 500 MG PO Q6H PRN for PAIN, (Reported) Albuterol Sulfate (Proair Hfa) 108 Mcg/Act Aer, 2 PUFF INH Q4H PRN for SHORTNESS OF BREATH, (Reported) Ipratropium [place] (Ipratropium [place]) 0.5 Mg/2.5 Ml Soln, 1 VIAL INH Q4H PRN for SHORTNESS OF BREATH, (Reported) Allergies Coded Allergies: No Known Allergies (Unverified , 01/17/18) MATIAS STARKS MD Nov 05, 2018 23:34
== END 2018-11-05 13:50 | disposition home or self-care (01) | DRG 291 ==
LOC: EDBD 09:02 → M ED 09:02 → M ED INP 12:12 → M ICU 13:50 → M PCU 11-03 17:20 → M MSPAV 11-04 15:25
PROVIDERS: ADMIT Internal Medicine Nephrology; ATTEND Internal Medicine Nephrology
DX: I50.31 Acute diastolic (congestive) heart failure (principal); J96.21 Acute and chronic respiratory failure with hypoxia; J96.22 Acute and chronic respiratory failure with hypercapnia; J18.9 Pneumonia, unspecified organism; J44.1 Chronic obstructive pulmonary disease with (acute) exacerbation; J10.1 Influenza due to other identified influenza virus with other respiratory manifestations; I35.0 Nonrheumatic aortic (valve) stenosis; K21.9 Gastro-esophageal reflux disease without esophagitis; I27.20 Pulmonary hypertension, unspecified; I27.81 Cor pulmonale (chronic); E78.5 Hyperlipidemia, unspecified; Z79.899 Other long term (current) drug therapy; Z79.82 Long term (current) use of aspirin